=== PATIENT | female | born 1960 | race Caucasian/White ===

== ENCOUNTER 2025-02-12 07:32 | Inpatient (IN) | payer MEDICARE, BC, SELFPAY ==
[2025-02-12] VITALS (101 sets, daily range): BP systolic 81–216; BP diastolic 58–105; PULSE 51–157; RESP 13–40; TEMP 36.3–36.8; O2SAT 70–99; BMI 32.3
--- NOTE | 2025-02-12 07:34 | ECG_ITS ---
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
--- NOTE | 2025-02-12 07:38 | XR_ITS ---
WS: [id number] Portable AP upright chest, 02/12/2025 Clinical Data: chest pain Comparison: None. Findings: There are patchy bilateral lower lobe opacities which may represent acute pneumonia. The heart is normal. The pulmonary vascularity is not increased and there is no pneumothorax. There are no nodules or masses. The aortic arch and descending thoracic aorta show minimal tortuosity. There are monitor leads on the chest wall. XR/XR chest 1V portable [id number] Impression: 1. Bilateral lower lobe patchy opacities which may represent acute pneumonia. 2. Atherosclerosis.
--- OUTSIDE RECORDS SUMMARY | 2025-02-12 07:40 | XMS_ITS | Continuity of Care Document ---
Author Organization CORRINE - Ihsan Fiore [facility] [place], [place], [facility] ([facility]) Address [address] [facility] [place] [address] Assessment No assessment recorded. Plan of Treatment Reminders Order Date Submit Date Provider Last Modified By Organization Details Last Modified Time Details Appointments None recorded. Lab culture, urine 2024 [employer] [facility], [address] [place] [address], [facility] [address] [place], [address], 5 10:48:18 urinalysis, dipstick 2024 025 [facility] ([facility]), [address] [place], [address], 16:26:15 Referral None recorded. Procedures None recorded. Surgeries None recorded. Imaging None recorded. Medication Orders nitrofurant oin monohydrate /macrocryst als 100 mg capsule 2024 025 [facility], [address] [place], [address], 05:02:04 Patient TargetsNo targets recorded. Patient InstructionsNo instructions recorded. Reason for Referral None Reported. Results Created Date Observation Date Name Description Value Unit Range Abnormal Flag Note LastModifiedBy Organization Detail LastModifiedTime 12/29/19 25 12/31/2024 CULTU RE, URINE , ROUTI NE culture, urine, routine SEE NOTE abnormal CULTU RE, URINE , ROUTI NE Micro Numbe r: [id number] Test Statu s: Final Speci men Sourc e: Not given Speci men Quali ty: Adequ ate Resul t: Great er than 100,0 00 CFU/m L of Esche connor a coli COMME NT: Addit ional non-p redom inati ng organ ism(s ) isola daniel. These organ isms, commo nly found on exter nal and inter nal genit bree, are consi dered colon izers . No furth er testi ng perfo rmed. E.col i ----- ----- ----- - INT JUANA AMOX/ CLAVU LANAT E R >=32 AMP/S ULBAC JJ R >=32 CEFAZ REGINALDO R 8 1 CEFEP BROCK S <=0.1 2 CEFTA ZIDIM E S <=0.5 CEFTR IAXON E S <=0.2 5 CIPRO FLOXA OFELIA S <=0.0 6 GENTA MICIN S <=1 IMIPE NEM S <=0.2 5 LEVOF LOXAC IN S <=0.1 2 MEROP ENEM S <=0.2 5 NITRO FURAN TOIN S <=16 PIP/T AZOBA CTAM S 8 TRIME THOPR IM/ROBINS LFA R >=320 S = Susce ptibl e I = Inter media te R = Resis tant NS = Not susce ptibl e SDD = Susce ptibl e Dose Depen dent * = Not Teste d NR = Not Repor daniel NN = See Thera py Comme nts THERA PY COMME NTS Note 1: For uncom plica daniel UTI cause d by E. coli, K. pneum oniae or P. mirab ilis: Cefaz reginaldo is susce ptibl e if JUANA <32 mcg/m L and predi cts susce ptibl e to the oral agent s cefac nadia, cefdi bisi, cefpo doxim e, cefpr ozil, cefur oxime , cepha lexin and lorac arbef . Not Available [employer] [facility] [address] [place], [address], 12/31/2024 10:48:18 12/29/19 25 12/28/2024 urina lysis , dipst ick Leukocytes Large Not Available [facility] ([facility]) [address] [place], [address], 12/28/2024 16:17:51 12/29/19 25 12/28/2024 urina lysis , dipst ick Nitrite positi ve Not Available [facility] ([facility]) [address] [place], [address], 12/28/2024 16:17:51 12/29/19 25 12/28/2024 urina lysis , dipst ick Urobilinogen 8 Not Available [facility] ([facility]) [address] [place], [address], 12/28/2024 16:17:51 12/29/19 25 12/28/2024 urina lysis , dipst ick Protein 300 Not Available [facility] ([facility]) [address] [place], [address], 12/28/2024 16:17:51 12/29/19 25 12/28/2024 urina lysis , dipst ick pH 5.0 Not Available [facility] ([facility]) [address] [place], [address], 12/28/2024 16:17:51 12/29/19 25 12/28/2024 urina lysis , dipst ick Blood Small Not Available [facility] ([facility]) [address] [place], [address], 12/28/2024 16:17:51 12/29/19 25 12/28/2024 urina lysis , dipst ick Specific [place] 1.010 Not Available [facility] ( [facility]) [address] [place], [address], 12/28/2024 16:17:51 11/0712/28/2024 urina lysis , dipst ick Ketone Small Not Available [facility] ([facility]) [address] [place], [address], 12/28/2024 16:17:51 12/29/1912/28/2024 urina lysis , dipst ick Bilirubin Small Not Available [facility] ([facility]) [address] [place], [address], 12/28/2024 16:17:51 12/29/1912/28/2024 urina lysis , dipst ick Glucose 250 Not Available [facility] ([facility]) [address] [place], [address], 12/28/2024 16:17:51 12/29/1912/28/2024 urina lysis , dipst ick Appearance Cloudy Not Available [facility] ([facility]) [address] [place], [address], 12/28/2024 16:17:51 12/29/1912/28/2024 urina lysis , dipst ick Color Mccurtain Not Available [facility] ([facility]) [address] [place], [address], 12/28/2024 16:17:51 Result Notes None recorded. Problems Name Problem SNOMED Code Status Onset Date Resolution Date Notes Provider Name and Address Organization Details Recorded Time Hematoma of lower leg 315134496 Active 023 Dylon Velzo MD [address] [place], [address] , [facility] 12:45:36 Problem Notes None recorded. Procedures Surgical History Date Name Laterality Status Provider Name and Address Organization Details Recorded Time [facility] 08:07:01 bone graft completed Audra Kim [facility] 01/27/2024 08:07:13 Imaging Results None recorded. Procedure Notes None recorded. Medical Equipment None Reported. Allergies Allergen ID Allergen Name Allergen Category Reaction Reaction Severity Criticality Documentation Date Start Date Code Code System Note Provider Name and Address Organization Details Recorded Time 2111 Product containin g penicilli n (product) medicatio n Not available Not available Not available 06/15/2022 15737 8001 SNOMED MARTHA IESHA [facility] 3 12:29:10 67659 penicilli n V potassium medicatio n Not available Not available Not available 09/18/202226237 5 RxNorm Comme nt: Recor ded 08/05 7:26A M by Sen Andrade, Offic e Visit ; Promo daniel; Signi fican ce: *; Reaso n: Drug aller gy; ; [facility] 5 18:37:48 05808 cephalexi n monohydra te medicatio n Not available Not available Not available 09/18/2022 96971 8 RxNorm Comme nt: Recor ded 08/05 7:27A M by Sen Andrade, Offic e Visit ; Promo daniel; Signi fican ce: *; Reaso n: Drug aller gy; ; Not Available [facility] 02:29:02 63771 esomepraz ole Not available Not available Not available Not available 02/08/2025 43937 2 RxNorm Not Available surya - External Data Service - prod 5 14:38:08 Medications Name Sig Start Date Stop Date Status Note LastModified by Organization Details LastModified Time clindamycin HCl 300 mg capsule Take 1 capsule 3 times a day by oral route for 7 days. 12/28 completed Not Available Not Available Not Available azithromyci n 250 mg tablet tabs on day 1, 1 tab on days 2-5 06/05 completed Not Available Not Available Not Available Lidocaine Viscous 2 % mucosal solution Take 15 mL every 3 hours by oral route. 06/05 completed Not Available Not Available Not Available betamethaso ne acetate and sodium phos 6 mg/mL suspension for injection Take 6 mg by injection route. 2024 active Not Available Not Available Not Avai lable nitrofurant oin monohydrate /macrocryst als 100 mg capsule Take 1 capsule every 12 hours by oral route for 5 days. 01/09 completed Not Available Not Available Not Available Vitals Date Recorded Body height Body mass index (BMI) Body weight Body temperature Heart rate Oxygen saturation Systolic And Diastolic Provider Name and Address Organization Details Last Updated DateTime 5 162.56 cm 31.8 kg/m2 19551.9 9 g 97.5 [degF] 77 /min 97 % 132/70 mm[Hg] Rhea Richardson [facility] 5 16:26:06 Social History Question Answer Notes LastModified by [employer] ion Details LastModified Time Tobacco Smoking Status Never Smoker Audra grullon, [facility] 01/27/2024 08:03:02 What Was The Date Of Your Most Recent Tobacco Screening? 02/08/2025 [email or web address] Information not available 02/08/2025 Sex: Unknown Functional Status None recorded. Mental Status None recorded. Family History Nothing Reported. Medical History No medical history recorded. Gynecological HistoryNo gynecological history recorded. Obstetrics History GPAL:G 0 P 0 0 0 0 Immunizations Vaccine Type Date Status Note Provider Nam e and Address Organization Details Recorded Time Influenza, split virus, trivalent, preservative 1 completed Not Available [facility] 12/28/2024 16:13:55 Influenza, split virus, trivalent, preservative 2 completed Not Available [facility] 12/28/2024 16:13:55 Influenza, split virus, trivalent, preservative 3 completed Not Available [facility] 12/28/2024 16:13:55 Influenza, split virus, trivalent, PF 4 completed Not Available [facility] 12/28/2024 16:13:55 Influenza, high-dose, trivalent, PF completed Not Available [facility] 12/28/2024 16:13:55 Past Encounters Encounter ID Performer Location Encounter Start Date Encounter Closed Date Diagnosis/Indication Diagnosis SNOMED-CT Code Diagnosis ICD10 Code Diagnosis IMO Codes Diagnosis Note [id number] MICHAEL CHO [facility] ([facility]) [address] [place] [address] 12/28/2024 16:10:51 12/28/2024 17:04:56 Dysuria 09988557 R30.0 81160 Discussed to take antibiotic as prescribed until completedU rine culture ordered - will notify of any resultsEdu cated patient on increasing PO fluids of water, decreasing caffeine (coffee) and sugary drinks.Dis cussed importance of avoiding baths, scented soaps, douching, perfumes.M ay take OTC AZO for 1-2 days as box directs for burning sensation. Discussed if developmen t of abdominal pain, flank pain, fever, vomiting, worsening symptoms return to walk-in, PCP or ED for re-evaluat ion. Return to clinic if any changes, any worsening, any concernsPa tient verbalized understand ing of plan. Health Concerns Section Related Observation LastModified by Organization Detai ls LastModified Time None Recorded Concern Status LastModified by Organization Details LastModified Time None Recorded Payers Encounter Date Sequence Insurance Name Policy Number Policy Zapien Covered Member ID Zapien Member ID Guarantor Name 12/28/2024 1 [place] Kostas Calvert [id number] Kostas giron 12/28/2024 2 [place] [id number] Kostas graham [id number] Kostas giron Notes Date Note Type Note Provider Name and Address Organization Details Recorded Time 12/28/2024 text/html ROS as noted in the HPI walk in ptPt is having burning, urgency, lower abdominal pressure and frequency for 4 days. Started AZO yesterday. Today prior to taking an AZO for relief she took an otc urine test which was positive for UTI. MICHAEL CHO [address] [place], [address], [facility], [place] 12/28/2024 16:36:46 OBGyn Episode No OBEpisode recorded.
--- OUTSIDE RECORDS SUMMARY | 2025-02-12 07:40 | XMS_ITS | Data Portability ---
Author Organization CORRINE Martinez [facility], [place], [facility] Address [address] [address] [place] [address] Assessment No assessment recorded. Plan of Treatment Reminders Order Date Submit Date Provider Last Modified By Organization Details Last Modified Time Details Appointments None recorded. Lab culture, urine 2024 [place] [employer] [facility], [address] [place] [address], [facility] [address] [place], [address], 5 10:48:18 urinalysis, dipstick 2024 025 [facility] ([facility]), [address] [place], [address], 5 16:26:15 rapid strep group A, throat 2023 024 [facility] ([facility]), [address] [place], [address], 4 10:42:27 Referral None recorded. Procedures None recorded. Surgeries None recorded. Imaging None recorded. Medication Orders betamethaso ne acetate and sodium phos 6 mg/mL suspension for injection 2024 025 [email or web address] Not available 5 16:54:09 nitrofurant oin monohydrate /macrocryst als 100 mg capsule 2024 025 [facility] [place], [address] [place], [address], 5 05:02:04 clindamycin HCl 300 mg capsule 2024 025 [facility], [address], [place], [address], 5 17:24:52 betamethaso ne acetate and sodium phos 6 mg/mL suspension for injection 2023 024 [email or web address] Not available 18:37:59 Lidocaine Viscous 2 % mucosal solution 2023 025 [facility], [address] [place] [address], [address], 5 18:46:10 clindamycin HCl 300 mg capsule 2023 [email or web address] [place] [address], [address] [place] [address], [address], 5 16:22:49 azithromyci n 250 mg tablet 2023 025 [facility], [address] [place] [address], [address], 5 18:46:09 Patient TargetsNo targets recorded. Patient InstructionsNo instructions recorded. Reason for Referral None Reported. Results Created Date Observation Date Name Description Value Unit Range Abnormal Flag Note LastModifiedBy Organization Detail LastModifiedTime 01/24/20 24 01/24/2024 rapid strep group A, throa t Strep negati ve Not Available [facility] ([facility]) [address] [place], [address], 01/24/2024 10:30:01 12/29/19 25 12/31/2024 CULTU RE, URINE , ROUTI NE culture, urine, routine SEE NOTE abnormal CULTU RE, URINE , ROUTI NE Micro Numbe r: [id number] Test Statu s: Final Speci men [...] lexin and lorac arbef . Not Available [employer] [facility] [address] [place], [address], 12/31/2024 10:48:18 12/29/19 25 12/28/2024 urina lysis , dipst ick Leukocytes Large Not Available [facility] ([facility]) [address] [place], [address], 12/28/2024 16:17:51 12/29/19 25 12/28/2024 urina lysis , dipst ick Nitrite positi ve Not Available [facility] ([facility]) [address] [place], [address], 12/28/2024 16:17:51 12/29/19 25 12/28/2024 urina lysis , dipst ick Urobilinogen 8 Not Available [facility] ([facility]) [address] [place], [address], 12/28/2024 16:17:51 12/29/19 25 12/28/2024 urina lysis , dipst ick Protein 300 Not Available [facility] ([facility]) [address] [place], [address], 12/28/2024 16:17:51 12/29/19 25 12/28/2024 urina lysis , dipst ick pH 5.0 Not Available [facility] ([facility]) [address] [place], [address], 12/28/2024 16:17:51 12/29/19 25 12/28/2024 urina lysis , dipst ick Blood Small Not Available [facility] ([facility]) [address] [place], [address], 12/28/2024 16:17:51 12/29/19 25 12/28/2024 urina lysis , dipst ick Specific [place] 1.010 Not Available [facility] ( [facility]) [address] [place], [address], 12/28/2024 16:17:51 12/29/19 25 12/28/2024 urina lysis , dipst ick Ketone Small Not Available [facility] ([facility]) [address] [place], [address], 12/28/2024 16:17:51 12/29/1912/28/2024 urina lysis , dipst ick Bilirubin Small Not Available [facility] ([facility]) [address] [place], [address], 12/28/2024 16:17:51 12/29/1912/28/2024 urina lysis , dipst ick Glucose 250 Not Available [facility] ([facility]) [address] [place], [address], 12/28/2024 16:17:51 12/29/1912/28/2024 urina lysis , dipst ick Appearance Cloudy Not Available [facility] ( [facility]) [address] [place], [address], 12/28/2024 16:17:51 12/29/1912/28/2024 urina lysis , dipst ick Color [place] Not Available [facility] ([facility]) [address] [place], [address], 12/28/2024 16:17:51 Result Notes None recorded. Problems Name Problem SNOMED Code Status Onset Date Resolution Date Notes Provider Name and Address Organization Details Recorded Time Hematoma of lower leg 146166302 Active 023 Dylon Veloz MD [address] [place], [address] , [facility] 12:45:36 Problem Notes None recorded. Procedures Surgical History Date Name Laterality Status Provider Name and Address Organization Details Recorded Time Total [facility] 01/27/2024 08:07:01 bone graft completed Audra Kim [facility] 01/27/2024 08:07:13 Imaging Results None recorded. Procedure Notes None recorded. Medical Equipment None Reported. Allergies Allergen ID Allergen Name Allergen Category Reaction Reaction Severity Criticality Documentation Date Start Date Code Code System Note Provider Name and Address Organization Details Recorded Time 2111 Product containin g penicilli n (product) medicatio n Not available Not available Not available 06/15/2022 94205 8001 SNOMED MARTHA [facility] 3 12:29:10 40791 penicilli n V potassium medicatio n Not available Not available Not available 09/18/202213327 5 RxNorm Comme nt: Recor ded 08/05 7:26A M by Sen Andrade, Offic e Visit ; Promo daniel; Signi fican ce: *; Reaso n: Drug aller gy; ; Sunita Tim[facility]o [facility] 5 18:37:48 81172 cephalexi n monohydra te medicatio n Not available Not available Not available 09/18/2022 32149 8 RxNorm Comme nt: Recor ded 08/05 7:27A M by Sen Andrade, Offic e Visit ; Promo daniel; Signi fican ce: *; Reaso n: Drug aller gy; ; Not Available [facility] 3 02:29:02 09869 esomepraz ole Not available Not available Not available Not available 02/08/2025 93882 2 RxNorm Not Available surya - External [...] height Body mass index (BMI) Body weight Oxygen saturation Heart rate Body temperature Systolic And Diastolic Provider Name and Address Organization Details Last Updated DateTime 5 162.56 cm 32.1 kg/m2 91390.1 7 g 97 % 74 /min 97.8 [degF] 124/78 mm[Hg] Sunita Mahmood [facility] 5 18:42:29 Date Recorded Body height Body mass index (BMI) Body weight Body temperature Heart rate Oxygen saturation Systolic And Diastolic Provider Name and Address Organization Details Last Updated DateTime 5 162.56 cm 31.8 kg/m2 26939.9 9 g 97.5 [degF] 77 /min 97 % 132/70 mm[Hg] Rhea Richardson [facility] 5 16:26:06 Date Recorded Body height Body mass index (BMI) Body weight Oxygen saturation Heart rate Body temperature Systolic And Diastolic Provider Name and Address Organization Details Last Updated DateTime 4 162.56 cm 31.4 kg/m2 85252.4 g 99 % 70 /min 97.8 [degF] 128/72 mm[Hg] Jerome Randall [facility] 4 10:23:09 Date Recorded Body height Body mass index (BMI) Body weight Oxygen saturation Heart rate Respiratory rate Body temperature Systolic And Diastolic Provider Name and Address Organization Details Last Updated DateTime 4 162.56 cm 31.2 kg/m2 88906.8 1 g 95 % 95 /min 16 /min 98.2 [degF] 160/90 mm[Hg] Audra Kim [facility] 4 08:08:20 Date Recorded Body height Body mass index (BMI) Body weight Body temperature Oxygen saturation Heart rate Systolic And Diastolic Provider Name and Address Organization Details Last Updated DateTime 5 162.56 cm 31.9 kg/m2 99444.8 8 g 98.4 [degF] 98 % 100 /min 132/74 mm[Hg] Rhea Dylan [facility] 5 14:54:26 Social History Question Answer Notes LastModified by Organizat ion Details LastModified Time Tobacco Smoking Status Never Smoker Audra Kim yadi [facility] 01/27/2024 08:03:02 What Was The Date Of Your Most Recent Tobacco Screening? 02/08/2025 [email or web address] Information not available 02/08/2025 Sex: Unknown Functional Status None recorded. Mental Status None recorded. Family History Nothing Reported. Medical History No medical history recorded. Gynecological HistoryNo gynecological history recorded. Obstetrics History GPAL:G 0 P 0 0 0 0 Immunizations Vaccine Type Date Status Note Provider Nam e and Address Organization Details Recorded Time Influenza, split virus, trivalent, preservative 1 completed Not Available [facility] 12/28/2024 16:13:55 Influenza, split virus, trivalent, preservative 2 completed Not Available [facility] 12/28/2024 16:13:55 Influenza, split virus, trivalent, preservative 3 completed Not Available [facility] 12/28/2024 16:13:55 Influenza, split virus, trivalent, PF 4 completed Not Available [facility] 12/28/2024 16:13:55 Influenza, high-dose, trivalent, PF 5 completed Not Available [facility] 12/28/2024 16:13:55 Past Encounters Encounter ID Performer Location Encounter Start Date Encounter Closed Date Diagnosis/Indication Diagnosis SNOMED-CT Code Diagnosis ICD10 Code Diagnosis IMO Codes Diagnosis Note [id number] Dylon Veloz MD [facility] ([facility]) [address] [place] [address] 06/15/2022 12:23:01 06/15/2022 19:19:46 Hematoma of lower leg 398101636 S80.11XA continue with current interventi ons at this time...f/u if it does not improve.. [id number] [facility] [address] [place] [address] 01/24/2024 10:11:01 01/24/2024 13:09:38 Sore throat 428654805 J02.9 Acute tonsillitis 598234 08 J03.90 Push cold oral fluids including Popsicles. Alternate tylenol/mo david for fever or discomfort .May use throat lozenges, chlorasept ic spray, or saltwater gargles.ta ke antibiotic as directedIf you develop worsening symptoms such as unable to swallow, persistant fever, or concerns arise then return for re-eval. [id number] TREVER OSMAN [facility] ([facility]) [address] [place] [address] 01/27/2024 08:01:52 01/31/2024 13:43:51 Acute pharyngitis 326240112 J02.9 Discussed use of prescribed meds. Stop the zpack. Use the visc lidocaine PRN to help with eating/dri nking fluids. F/u if you develop increased swelling, symptoms worsen, cannot swallow own secretions . [id number] MICHAEL CHO [facility] ([facility]) [address] [place] [phone] 06/05/2024 18:32:49 06/05/2024 22:29:20 Acute pharyngitis 221952570 J02.9 Drink plenty of fluids. If you develop throat swelling, difficulty swallowing , symptoms are worsening or rash return to clinic for further evaluation or PCP. Utilize OTC Tylenol or Ibuprofen for fever/pain /discomfor t. Patient verbalized understand ing of plan.Retur n to clinic if any changes, any worsening, any concerns. [id number] MICHAEL CHO [facility] ([facility]) [address] [place] [address] 12/28/2024 16:10:51 12/28/2024 17:04:56 Dysuria 84061618 R30.0 60784 Discussed to take antibiotic as prescribed until [...] concernsPa tient verbalized understand ing of plan. [id number] MICHAEL SUMMERS [facility] ([facility]) [address] [place] [address] 02/08/2025 14:37:10 02/08/2025 17:01:10 Pain in throat 060548259 J02.9 16195 Health Concerns Section Related Observation LastModified by Organization Detai ls LastModified Time None Recorded Concern Status LastModified by Organization Details LastModified Time None Recorded Advance Directives Directive None Recorded Payers Insurance Date Sequence Insurance Name Policy Number Policy Zapien Covered Member ID Zapien Member ID Guarantor Name 02/08/2025 [place] - [facility] (MEDICARE) Kostas wilcox [id number] Kostas Glynn es 02/08/2025 2 [employer] [id number] (MEDICARE SUPPLEMENT) Kostas wilcox [id number] Kostas Glynn es 02/08/2025 1 [place] Kostas Calvert [id number] Kostas Glynn es 02/08/2025 1 [facility] [id number] Kostas wilcox [id number] Kostas Glynn es 02/08/2025 2 [place]) [id number] Kostas wilcox [id number] Kostas lock Notes Date Note Type Note Provider Name and Address Organization Details Recorded Time 01/24/2024 text/html ROS as noted in the HPI walk in: Pt presents with a sore throat, right ear pressure for the last several days. 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 Pt will rub this area to promote drainage and her symptoms typically resolve. it's not working this time. PCP: none MICHAEL SUMMERS [address] [place] [address], [phone], [facility] 01/24/2024 14:47:10 01/27/2024 text/html Sore ThroatRepor daniel by PatientROS as noted in the HPI walk in patientpatient is here today for a follow up on her sore throat from 01/24/24, patient is taking the z pac and it has not helped her sore throat. Has 2 doses left. States she feels more swelling in her throat. Hurts to swallow fluid or food. Denies fever, rash, joint pain. MICHAEL SUMMERS [address] [place] [address], [phone], [facility] 01/28/2024 10:43:58 06/05/2024 text/html ROS as noted in the HPI walk inx 1 day has swelling, draining to bronchial cleft defect. Last issue was in January. Has had increasing pain throughout the day. Denies any problems with swallowing. 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 Pt will rub this area to promote drainage and her symptoms typically resolve. It's not working this time. Area is red from the rubbing. 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 06/05/2024 18:57:50 12/28/2024 text/html ROS as noted in the HPI walk in ptPt is having burning, urgency, lower abdominal pressure and frequency for 4 days. Started AZO yesterday. Today prior to taking an AZO for relief she took an otc urine test which was positive for UTI. BLANCA STEVEN, [facility] [address] [place], [address], [facility]. 12/28/2024 16:36:46 02/08/2025 text/html ROS as noted in the HPI walk in ptPt felt like she had a fever in her neck because it was sweating. PT has a defect in her neck and she thinks it is causing shortness of breath this week. TREVER OSMAN, [facility] [address] [place], [address], [facility], [facility]. 02/08/2025 16:03:13 OBGyn Episode No OBEpisode recorded.
--- OUTSIDE RECORDS SUMMARY | 2025-02-12 07:40 | XMS_ITS | Clinical Summary ---
Author Organization [employer] Address [address] 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
--- OUTSIDE RECORDS SUMMARY | 2025-02-12 07:40 | XMS_ITS | Continuity of Care Document ---
Author Organization [facility] Rickey Augustine, [facility] ([facility]) Address [address] [facility] [place] [address] Assessment No assessment recorded. Plan of Treatment Reminders Order Date Submit Date Provider Last Modified By Organization Details Last Modified Time Details Appointments None recorded. Lab None recorded. Referral None recorded. Procedures None recorded. Surgeries None recorded. Imaging None recorded. Medication Orders betamethaso ne acetate and sodium phos 6 mg/mL suspension for injection 2024 025 [email or web address] Not available 5 16:54:09 Patient TargetsNo targets recorded. Patient InstructionsNo instructions recorded. Reason for Referral None Reported. Problems Name Problem SNOMED Code Status Onset Date Resolution Date Notes Provider Name and Address Organization Details Recorded Time Hematoma of lower leg 500069495 Active 023 Dylon Veloz MD [address] [place] [address], [address] , [facility] 3 12:45:36 Problem Notes None recorded. Procedures Surgical History Date Name Laterality Status Provider Name and Address Organization Details Recorded Time Total Hysterectomy completed [facility] 01/27/2024 08:07:01 bone graft completed [facility] 01/27/2024 08:07:13 Imaging Results None recorded. Procedure Notes None recorded. Medical Equipment None Reported. Allergies Allergen ID Allergen Name Allergen Category Reaction Reaction Severity Criticality Documentation Date Start Date Code Code System Note Provider Name and Address Organization Details Recorded Time 2111 Product containin g penicilli n (product) medicatio n Not available Not available Not available 06/15/2022 76133 8001 SNOMED MARTHA IESHA [facility] 3 12:29:10 42548 penicilli n V potassium medicatio n Not available Not available Not available 09/18/202291873 5 RxNorm Comme nt: Recor ded 08/05 7:26A M by Sen Andrade, Offic e Visit ; Promo daniel; Signi fican ce: *; Reaso n: Drug aller gy; ; [facility] 5 18:37:48 44249 cephalexi n monohydra te medicatio n Not available Not available Not available 09/18/2022 20443 8 RxNorm Comme nt: Recor ded 08/05 7:27A M by Sen Andrade, Offic e Visit ; Promo daniel; Signi fican ce: *; Reaso n: Drug aller gy; ; Not Available [facility] 3 02:29:02 53957 esomepraz ole Not available Not available Not available Not available 02/08/2025 26484 2 RxNorm Not Available surya - External [...] Updated DateTime 5 162.56 cm 31.9 kg/m2 32619.8 8 g 98.4 [degF] 98 % 100 /min 132/74 mm[Hg] Rhea Richardson [facility] 5 14:54:26 Social History Question Answer Notes LastModified by Organizat ion Details LastModified Time Tobacco Smoking Status Never Smoker Audra grullon [facility] 01/27/2024 08:03:02 What Was The Date Of Your Most Recent Tobacco Screening? 02/08/2025 [email or web address] Information not available 02/08/2025 Sex: Unknown Functional [...] preservative 1 completed Not Available [facility] 12/28/2024 16:13:55 Influenza, split virus, trivalent, preservative 2 completed Not Available [facility] 12/28/2024 16:13:55 Influenza, split virus, trivalent, preservative 3 completed Not Available [facility] 12/28/2024 16:13:55 Influenza, split virus, trivalent, PF 4 completed Not Available [facility] 12/28/2024 16:13:55 Influenza, high-dose, trivalent, PF 5 completed Not Available [facility] 12/28/2024 16:13:55 Past Encounters Encounter ID Performer Location Encounter Start Date Encounter Closed Date Diagnosis/Indication Diagnosis SNOMED-CT Code Diagnosis ICD10 Code Diagnosis IMO Codes Diagnosis Note [id number] MICHAEL SUMMERS [facility] ([facility]) [address] [place] [address] 02/08/2025 14:37:10 02/08/2025 17:01:10 Pain in throat 235140450 J02.9 35256 Health Concerns Section Related Observation LastModified by Organization Detai ls LastModified Time None Recorded Concern Status LastModified by Organization Details LastModified Time None Recorded Payers Encounter Date Sequence Insurance Name Policy Number Policy Zapien Covered Member ID Zapien Member ID Guarantor Name 02/08/2025 1 [place] Kostas Calvert [id number] Kostas giron 02/08/2025 2 [place]MED[place]) [id number] Kostas graham [id number] Kostas giron Notes Date Note Type Note Provider Name and Address Organization Details Recorded Time 02/08/2025 text/html ROS as noted in the HPI walk in ptPt felt like she had a fever in her neck because it was sweating. PT has a defect in her neck and she thinks it is causing shortness of breath this week. TREVER OSMAN, MICHAEL [address] [place], [address], CORRINE Champagne [facility], Rickey 02/08/2025 16:03:13 OBGyn Episode No OBEpisode recorded.
--- OUTSIDE RECORDS SUMMARY | 2025-02-12 07:40 | XMS_ITS | Patient Health Record ---
Author Organization [facility] Address [address] [place] [address] Support Name Relationship Address Phone Kostas Calvert Guarantor Unknown [phone] Allergies Allergen (clinical drug ingredient) Drug/Non Drug Allergy documented on EMR Reaction Allergy Type Onset Date Status esomeprazole Esomeprazole , Drug Allergy A ctive Reason For Referral No Information Medications Medication SIG (Take, Route, Frequency, Duration) Notes Start Date End Date Status Ibuprofen 200 MG Oral Tablet Ibuprofen 200 MG Oral Tablet 05/10/2011 Active Tylenol Tylenol 05/06/2011 Active Tagamet Tagamet 05/06/2011 Active Social History Social History Additional Details Category Social Info Options Details zzMigrated Social History Migrated Social History Smoking Status:Never smoked tobacco (finding) Plan Of Treatment No Information
--- OUTSIDE RECORDS SUMMARY | 2025-02-12 07:41 | XMS_ITS | Encounter Summary ---
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
--- NOTE | 2025-02-12 07:52 | ED_ITS ---
HPI - Chest Pain 2 General: Chief Complaint: Chest Pain Stated Complaint: high hr, cp Time Seen by Provider: 02/12/25 07:42 History of Present Illness: 64-year-old female with no known past me dical history presents emergency room with chest discomfort and a high heart rate. She says she has been dealing with this for about a month but but is worse today. On presentation she is tachycardic in the 150s. She says she has a pressure in her chest. She takes no medications. No cough. No fever. No altered mental status. No focal motor deficits. When I discussed that we may have to keep her in the hospital she comes very tearful. Apparently her father recently. She says she has to deal with arrangements Related Data Home Medications ?Medication ?Instructions ?Recorded ?Confirmed No Known Home Medications 06/07/2401/22 Allergies Allergy/AdvReac Type Severity Reaction Status Date / Time cephalexin Allergy Ammon Verified 02/12/25 09:57 Lip/Tongue/Throat Penicillins Allergy Ammon Verified 02/12/25 09:57 Lip/Tongue/Throat Review of Systems 2 Narrative: Constitutional symptoms: Negative except as documented in HPI. Skin symptoms: Negative except as documented in HPI. Eye symptoms: Negative except as documented in HPI. ENMT symptoms: Negative except as documented in HPI. Respiratory symptoms: Negative except as documented in HPI. Cardiovascular symptoms: Negative except as documented in HPI. Gastrointestinal symptoms: Negative except as documented in HPI. Genitourinary symptoms: Negative except as documented in HPI. Musculoskeletal symptoms: Negative except as documented in HPI. Neurologic symptoms: Negative except as documented in HPI. Psychiatric symptoms: Negative except as documented in HPI. Endocrine symptoms: Negative except as documented in HPI. PFSH ED 2 PFSH: Social History Smoking and tobacco/nicotine status: never used tobacco/nicotine Physical Exam 2 Narrative: EXAM NARRATIVE: General: Alert, no acute distress. Skin: Warm, dry. Head: Normocephalic, atraumatic. Neck: Supple, trachea midline. Eye: Extraocular movements are intact. Ears, nose, mouth and throat: mucosa moist. Cardiovascular: Irregular, tachycardic, Normal peripheral perfusion. Respiratory: Lungs are clear to auscultation, respirations are non-labored, breath sounds are equal, Symmetrical chest wall expansion. Gastrointestinal: Soft, Nontender, Non distended Musculoskeletal: Normal ROM, no deformity. Neurological: Alert and oriented, No focal neurological deficit observed. Psychiatric: Cooperative, appropriate mood & affect. Course 2 Vital Signs: Vital signs: Vital Signs Temperature 97.4 F L 02/12/25 07:36 Pulse Rate 116 H 02/12/25 09:30 Respiratory Rate 20 H 02/12/25 09:30 Blood Pressure 119/78 02/12/25 09:30 Pulse Oximetry 86 L 02/12/25 09:30 Oxygen Delivery Me thod Room Air 02/12/25 07:53 MDM - Chest Pain Medical Decision Making Medical decision making Patient's reason for coming to the emergency room: Chest pressure, tachycardia Social determinants: Retired. is present. I reviewed the patient's medical record. She has had 1 visit to urgent care in May. No other visits here. I reviewed the patient's current home meds Patient takes no chronic medications Alternate historians: None Differential diagnosis: including but not limited to and based on the above HPI, review of systems and physical exam: In this patient with new onset atrial fibrillation with rapid ventricular response would have concern for heart failure, acute coronary syndrome, electrolyte abnormalities, hyperthyroidism, infection such as a urinary tract infection. orders placed to evaluate differential diagnosis based on the above differential, HPI and physical exam EKG: Time 7:39 AM. Rate 147. Atrial fibrillation with rapid ventricular response, nonspecific ST changes, no ectopy, This was reviewed and interpreted by myself the ER physician at 7:45 AM. Repeat EKG: Time 9:40 AM. Rate 108. Atrial fibrillation with rapid ventricular response, nonspecific ST change, no ectopy, This was reviewed and interpreted by myself the ER physician at 9:45 AM. Heart rate has decreased significantly from previous EKG. No other changes. Chest x-ray: Bilateral lower lobe patchy opacities which may represent pneumonia. However I think this is more of a basilar heart failure picture. She does not have a cough or fever. She has been having orthopnea. This was reviewed and interpreted by myself the emergency room physician. I also reviewed the radiology report. Lab Review: Laboratory results were reviewed and interpreted by myself the emergency room physician. Mild leukocytosis. No anemia. No renal failure. Serial cardiac markers are negative and unchanged at 1 hour Assessment of risk: Level of risk: Moderate risk patient. Hospitalization considerations: Patient is being admitted for A-fib with RVR, heart failure and urinary tract infection Reexamination: Patient heart rate has come down some. She is not requiring any oxygen. No altered mental status. No focal motor deficits. Consultation: I spoke with Dr. Sloan who agrees to admission of the patient. Request cardiology consult. And stat echo Consultation: I spoke with Dr. Gonzáles who is on-call for cardiology who will consult on the patient. He agrees with echocardiogram Assessment and plan: Atrial fibrillation with rapid ventricular response. New onset atrial fibrillation Congestive heart failure Urinary tract infection ? Amiodarone bolus and drip. Heart rate is coming down slowly. ? IV Rocephin for urinary tract infection. -I discussed the patient with the hospitalist on-call who is admitting the patient. - Discussed findings and plan with patient. Answered any questions. - All laboratory values were reviewed and interpreted personally by myself, the ER physician - All imaging was reviewed and interpreted personally by myself, the ER physician. - Evaluation and treatment of this problem were appropriate in the emergency setting Critical Care: -I spent a total of 37 minutes of critical care time managing the patient, independent of any other practitioner. -The time involved in the performance of separately reportable procedures was not counted towards critical care time. Lab Data 02/12/25 07:49 02/12/25 07:49 Radiology Impressions Chest X-Ray 02/12/25 07:38 Impression: 1. Bilateral lower lobe patchy opacities which may represent acute pneumonia. 2. Atherosclerosis. Laboratory Results WBC 15.89 10^3/uL (3.29-11.43) H 02/12/25 07:49 RBC 4.31 10^6/uL (3.85-5.65) 02/12/25 07:49 Hgb 13.20 g/dL (11.27-16.99) 02/12/25 07:49 Hct 40.4 % (36-47) 02/12/25 07:49 MCV 93.7 fl (85-98) 02/12/25 07:49 MCH 30.6 pg (27-33) 02/12/25 07:49 MCHC 32.7 g/dL (30-55) 02/12/25 07:49 RDW 12.8 % (12.1-15.1) 02/12/25 07:49 Plt Count 278 10^3/cmm (157-399) 02/12/25 07:49 MPV 12.9 fL (7.4-10.4) H 02/12/25 07:49 Neut % (Auto) 55.5 % 02/12/25 07:49 Lymph % (Auto) 33.0 % 02/12/25 07:49 [place] % (Auto) 8.3 % 02/12/25 07:49 Eos % (Auto) 1.5 % 02/12/25 07:49 Baso % (Auto) 0.6 % 02/12/25 07:49 Neut # (Auto) 8.82 10^3/uL (1.8-7.7) H 02/12/25 07:49 Lymph # (Auto) 5.2 10^3/uL (0.8-4.8) H 02/12/25 07:49 [place] # (Auto) 1.3 10^3/uL (0.2-0.9) H 02/12/25 07:49 Eos # (Auto) 0.2 10^3/uL (0.0-0.8) 02/12/25 07:49 Baso # (Auto) 0.1 10^3/uL (0.0-0.1) 02/12/25 07:49 Nucleated RBC % (auto) 0.1 % 02/12/25 07:49 Nucleated RBCs # 0.0 /100WBC 02/12/25 07:49 PT 12.70 SECONDS (12.1-14.9) 02/12/25 07:49 INR 0.89 (0.8-1.2) 02/12/25 07:49 APTT 26.4 SECONDS (23.9-36.7) 02/12/25 07:49 Sodium 137 mmol/L (136-145) 02/12/25 07:49 Potassium 4.1 mmol/L (3.5-5.1) 02/12/25 07:49 Chloride 104 mmol/L (98-107) 02/12/25 07:49 Carbon Dioxide 20 mmol/L (22-29) L 02/12/25 07:49 Anion Gap 17.1 (5-19) 02/12/25 07:49 BUN 16 mg/dL (8-23) 02/12/25 07:49 Creatinine 0.6 mg/dL (0.5-0.9) 02/12/25 07:49 GFR Calculation 100.0 mL/min (90-130) 02/12/25 07:49 Glucose 128 mg/dL (65-115) H 02/12/25 07:49 Calculated Osmolality 287 mOsm/kg (285-295) 02/12/25 07:49 Lactic Acid 1.7 mmol/L (0.5-2.2) 02/12/25 07:49 Calcium 9.3 mg/dL (8.5-10.5) 02/12/25 07:49 Magnesium 2.0 mg/dL (1.7-2.3) 02/12/25 07:49 Total Bilirubin 0.4 mg/dL (0.15-1.2) 02/12/25 07:49 AST 24 U/L (0-32) 02/12/25 07:49 ALT 44 U/L (0-33) H 02/12/25 07:49 Alkaline Phosphatase 98 U/L (35-105) 02/12/25 07:49 Troponin T Baseline 13 ng/L (0-10) H 02/12/25 07:49 Troponin T 60 Minute 10.38 ng/L (0-10) H 02/12/25 08:30 Delta Troponin T -2.62 ABS# (0-10) L 02/12/25 08:30 NT-Pro-B Natriuret Pep 3470 pg/mL (0-125) H 02/12/25 07:49 Total Protein 6.6 g/dL (6.6-8.7) 02/12/25 07:49 Albumin 4.3 g/dL (3.5-5.2) 02/12/25 07:49 Globulin 2.3 g/dL (1.3-4.6) 02/12/25 07:49 Lipase 37 U/L (13-60) 02/12/25 07:49 TSH 2.57 uIU/mL (0.27-4.20) 02/12/25 07:49 Urine Color Yellow (Yellow) 02/12/25 08:09 Urine Appearance Cloudy (CLEAR) A 02/12/25 08:09 Urine pH 5.0 (5-7) 02/12/25 08:09 Ur Specific [place] 1.025 (1.005-1.030) 02/12/25 08:09 Urine Protein 1+ (Negative) A 02/12/25 08:09 Urine Glucose (UA) Negative (Normal) 02/12/25 08:09 Urine Ketones Trace (Negative) 02/12/25 08:09 Urine Blood Negative (Negative) 02/12/25 08:09 Urine Nitrate Negative (Negative) 02/12/25 08:09 Urine Bilirubin Negative (Negative) 02/12/25 08:09 Urine Urobilinogen 0.2 mg/dL (Negative) 02/12/25 08:09 Ur Leukocyte Esterase 2+ (Negative) A 02/12/25 08:09 Urine RBC 3-5 /hpf (0-2) 02/12/25 08:09 Urine WBC 51-100 /hpf (0-5) H 02/12/25 08:09 Ur Squamous Epith Cells 11-20 /hpf (0-5) H 02/12/25 08:09 Amorphous Sediment Not Reportable 02/12/25 08:09 Urine Bacteria None seen /hpf (NONE) 02/12/25 08:09 Hyaline Casts 4.95 /lpf 02/12/25 08:09 All radiology interpretation(s) finalized by discharge Clincial Decision Support The following clinical decision support tools were used to aid in care of the patient HEART Score -> History: Moderately Suspicious, EKG: Non-specific Changes, Age: 65 or more yrs, Risk Factors: No Risk Factors Known, Troponin: Baseline Trop <16 ng/L. Resulting HEART Score: 4. Discharge Plan Discharge Patient Disposition: Admitted As Inpatient Admit Provider: Rito Sloan Clinical Impression: New onset atrial fibrillation, Atrial fibrillation with rapid ventricular response, New onset of congestive heart failure, Urinary tract infection Condition: Stable Coding Level of Care Code ED Branch Or Department Chief Librarian for [facility] Heart Score HEART Score Components History: Moderately Suspicious EKG: Non-specific Changes Age: 65 or more yrs Risk Factors: No Risk Factors Known Troponin: Baseline Trop <16 ng/L HEART Score RESULT HEART Score: 4
[2025-02-12 07:57] LABS: Hematocrit 40.4 % (36-47); Hemoglobin 13.20 g/dL (11.27-16.99); Mean Corpuscular HGB Conc 32.7 g/dL (30-55); Mean Corpuscular Hemoglobin 30.6 pg (27-33); Mean Corpuscular Volume 93.7 fl (85-98); Nucleated Red Blood Cells % 0.1 %; Platelet Count 278 10^3/cmm (157-399); Red Blood Count 4.31 10^6/uL (3.85-5.65); White Blood Count 15.89 10^3/uL (3.29-11.43)
[2025-02-12 08:12] LABS: Lactic Sepsis W/Reflex 1.7 mmol/L (0.5-2.2)
[2025-02-12 08:13] LABS: Slide Review Slide Review Perform; Troponin(5th) Baseline 13 ng/L (0-10)
[2025-02-12 08:24] LABS: Alanine Aminotransferase 44 U/L (0-33); Albumin Level 4.3 g/dL (3.5-5.2); Alkaline Phosphatase 98 U/L (35-105); Anion Gap 17.1 (5-19); Aspartate Amino Transferase 24 U/L (0-32); Blood Urea Nitrogen 16 mg/dL (8-23); Calcium 9.3 mg/dL (8.5-10.5); Carbon Dioxide 20 mmol/L (22-29); Chloride 104 mmol/L (98-107); Globulin 2.3 g/dL (1.3-4.6); Glucose 128 mg/dL (65-115); Lipase 37 U/L (13-60); Magnesium 2.0 mg/dL (1.7-2.3); NT Pro B Type Natriuretic Pept 3470 pg/mL (0-125); Osmolality Calculated 287 mOsm/kg (285-295); Potassium 4.1 mmol/L (3.5-5.1); Sodium 137 mmol/L (136-145); Thyroid Stimulating Hormone 2.57 uIU/mL (0.27-4.20); Total Protein 6.6 g/dL (6.6-8.7)
[2025-02-12 08:32] LABS: INR 0.89 (0.8-1.2); Prothrombin Time 12.70 SECONDS (12.1-14.9)
[2025-02-12 08:32] LABS: Glucose Urine UA Negative (Normal); Nitrate Urine Negative (Negative); Specific Gravity, Urine 1.025 (1.005-1.030)
[2025-02-12 08:34] LABS: Partial Thromboplastin Time 26.4 SECONDS (23.9-36.7)
--- NOTE | 2025-02-12 08:38 | ECG_ITS ---
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
[2025-02-12] MEDS: dilTIAZem 5 mg/mL SDV 5 mL 10 MG IVP (08:59)
[2025-02-12] MEDS: DILTIAZEM HCL/D5W 125 MG/125 ML BAG IV (08:59)
--- NOTE | 2025-02-12 09:11 | USCV_ITS ---
Kostas Magallon Age: 64 Gender: F : 1960 Exam Date: 02/12/2025 16:29 Ordering Phys: Joleen Lopez MD Technologist: SILAS Exam Location: [facility] Indication: new onset CHF and afib BP: 120 / 72 HR: 86 Rhythm: Sinus Technical Quality: Adequate MEASUREMENTS (Male / Female) Normal Values 2D ECHO LV Diastolic Diameter PLAX 5.1 cm 4.2 - 5.9 / 3.9 - 5.3 cm IVS Diastolic Thickness 1.1 cm 0.6 - 1.0 / 0.6 - 0.9 cm IVS Systolic Thickness 1.2 cm LVPW Diastolic Thickness 1.1 cm 0.6 - 1.0 / 0.6 - 0.9 cm LVPW Systolic Thickness 1.3 cm LVOT Diameter 2.0 cm LV Ejection Fraction 2D Teich 7.6 % LV Ejection Fraction MOD 4C 35.9 % LV Ejection Fraction MOD 2C 37.1 % LV Ejection Fraction 2C AL 39.2 % LA Diameter 3.8 cm RA Systolic Volume 4C AL 33.7 ml RA Systolic Volume 4C MOD 33.4 ml LA Sys Volume AL 49.1 cm cubed LA Sys Volume Index AL 24.6 cm cubed/m squared Aorta at Sinotubular Diameter 0.0 cm IVC Diameter 1.9 cm M-MODE LA Ao Ratio MM 1.9 AV Cusp Separation MM 1.3 cm DOPPLER AV Peak Velocity 143.0 cm/s LVOT Peak Velocity 95.0 cm/s AV Area Cont Eq vti 2.3 cm squared AV Area Cont Eq pk 2.0 cm squared MV Peak Velocity 140.0 cm/s MV Area PHT 6.0 cm squared Mitral E to A Ratio 1.3 TR Peak Velocity 78.0 cm/s TR Peak Gradient 2.4 mmHg TV Peak E Velocity 82.0 cm/s PV Peak Velocity 71.0 cm/s FINDINGS Left Ventricle Moderately increased left ventricular cavity size. Severely decreased left ventricular systolic function. Global left ventricular hypokinesis. Grade II/IV diastolic dysfunction, moderately elevated filling pressures. Right Ventricle Normal right ventricular size and systolic function. Right Atrium Normal right atrial size. Left Atrium Moderately increased left atrial size. IA Septum Normal appearance of the interatrial septum. Mitral Valve Mildly thickened mitral valve. No mitral valve stenosis. Mild mitral valve regurgitation. Aortic Valve Mild aortic valve calcification. No aortic valve stenosis. Mild aortic valve regurgitation. Tricuspid Valve Normal tricuspid valve structure. No tricuspid valve stenosis or regurgitation. Normal pulmonary pressure. Pulmonic Valve Normal pulmonic valve structure. No pulmonic valve stenosis or regurgitation. Pericardium No pericardial effusion. Aorta Normal diameter of the aortic root and ascending thoracic aorta. IVC Normal IVC diameter. CONCLUSIONS Moderately increased left ventricular cavity size. Severely decreased left ventricular systolic function. Global left ventricular hypokinesis. Grade II/IV diastolic dysfunction, moderately elevated filling There is no pericardial effusion. No significant valvular abnormalities. Right atrial pressure is around 5 mm of mercury. Dariel Mitchell MD (Electronically Signed) Final Date: 13 February 2025 11:19 S
--- NOTE | 2025-02-12 09:13 | PM.HP ---
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 She states she feels as if her heart rate has been high for a little over 1 month. She feels it is worse when laying flat and better when standing. She also mentions she has been having chest pressure as if someone has been standing on her chest. Her symptoms have been particularly worse in the week leading up to admission. 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 She also feels that her heart rate will drop with exertion, with a low of about 45 when walking up an elevation recently. Other associated symptoms include abdominal bloating, cough, and gagging since taking an antibiotic for UTI 6 weeks ago. She denies fever but endorses recent chills. She was particularly dizzy this morning. She denies any lower extremity swelling. Medications/Allergies Home Medications ?Medication ?Instructions ?Recorded ?Confirmed ?Last Taken ?Type No Known Home Medications 06/07/24 02/12/25 Unknown History Allergies Allergy/AdvReac Type Severity Reaction Status Date / Time cephalexin Allergy ALGY-Swell Verified 02/12/25 09:57 Lip/Tongue/Throat Penicillins Allergy ALGY-Swell Verified 02/12/25 09:57 Lip/Tongue/Throat PFSH Acute PFSH: Social History Smoking and tobacco/nicotine status: never used tobacco/nicotine Vitals/I&O/Wt Last Vital Signs Temp 97.4 F L 02/12/25 07:36 Pulse 150 H 02/12/25 08:33 Resp 23 H 02/12/25 08:33 BP 124/100 02/12/25 08:33 Pulse Ox 92 02/12/25 08:33 O2 Del Method Room Air 02/12/25 07:53 Weight last 48 hrs Weight 72.575 kg Physical Exam Const: COMMON NORMALS: no acute distress, patient oriented x3, healthy appearing, alert and well nourished Resp: COMMON NORMALS: normal respiratory effort and No use of accessory muscles OTHER: diminished bilaterally Cardio: OTHER: irregularly irregular, no MGR GI: COMMON NORMALS: Normal to inspection, nondistended, normoactive bowel sounds present, Soft to palpation and non-tender Extremity: OTHER: No lower extremity swelling Neuro: COMMON NORMALS: patient oriented x3 and CN's II-XII intact bilaterally Skin: COMMON NORMALS: no rashes or lesions noted Data 02/12/25 07:49 02/12/25 07:49 Micro: Microbiology 02/12/25 08:03 Blood Culture - Preliminary Blood SPECIMEN COLLECTED 02/12/25 07:58 Blood Culture - Preliminary Blood SPECIMEN COLLECTED A&P Assessment and plan 1. Atrial fibrillation with rapid ventricular response: - New onset without know prior cardiac history - ED has started patient on diltiazem drip. Continue for now - Consult cardiology today - Her [id number] is scored at a 2 for sex and age. If she has CHF, it is a 3. Opt to treat with anticoagulation for now with therapeutic lovenox, She does not appear to be volume overloaded. Her BNP elevation could be from atrial fibrillation alone - Obtain echocardiogram - CXR report mentions bilateral lower lobe patchy opacities which may represent acute pneumonia. Can check procalcitonin to help distinguish. I favor her shortness of breath to be secondary to her atrial fibrillation over infection - Check lipid panel. TSH WNL PDMP PDMP Reviewed: Not Reviewed Attestations Medical Necessity Statement*: Patient will require greater than two midnights to evaluate and treat new onset atrial fibrillation with RVR Coding Level of Care Code Acute Code for Chg Fwd Diagnoses Atrial fibrillation with rapid ventricular response I48.91
--- NOTE | 2025-02-12 10:05 | PC.NURSE ---
This nurse in room to complete patient/family rounding. Upon entering the room, the patient was handing something off to the female that was sitting at bedside. I asked what it was, as it appeared to be an aerosol can. They said it was canned oxygen. I asked if she was having trouble breathing or if she felt short of breath. the patient replied No . The visitor put the can away. I asked that she not use the can any more. The patient verbalized understanding. Charge nurse was notified of event.
[2025-02-12] MEDS: cefTRIAXone 1,000 mg SDV 1000 MG IVP (10:36)
[2025-02-12 13:54] LABS: Troponin 5 6HR 11.22 ng/L (0-10)
[2025-02-12 14:01] LABS: Troponin 5 6HR Delta -1.78 ng/L (0-12)
[2025-02-12 14:13] LABS: Cholesterol 176 mg/dL (0-200); HDL Cholesterol 37 mg/dL (60-100); Thyroid Stimulating Hormone 2.51 uIU/mL (0.27-4.20); Triglycerides 141 mg/dL (0-150)
--- NOTE | 2025-02-12 14:15 | ECG_ITS ---
[employer] Test Date: 2025-02-12 Pat Name: Kostas Magallon Department: Room: [facility] Gender: Female Agency Appointments Supervisor: : 1960 Requested By: Joleen Garcia Order Number: [id number] Donte MD: GENEVIEVE RODRIGUEZ Measurements Intervals [place] Rate: 89 P: 0 CO: 0 QRS: -1 QRSD: 83 T: 166 QT: 370 QTc: 452 Interpretive Statements ATRIAL FIBRILLATION POSSIBLE ANTERIOR MYOCARDIAL INFARCTION , OF INDETERMINATE AGE [30 ms Q WAVE IN V3/V4, OR R < 0.2 mV IN V4] MODERATE T-WAVE ABNORMALITY, CONSIDER LATERAL ISCHEMIA [-0.1+ mV T-WAVE IN I/aVL/V5/V6] Compared to ECG 02/12/2025 09:40:12 Myocardial infarct finding now present Possible ischemia now present T-wave abnormality still present Electronically Signed On 02-13-2025 20:37:38 INTAKE CLERK by GENEVIEVE RODRIGUEZ [email or web address]
[2025-02-12 14:35] LABS: Procalcitonin 0.07 ng/mL (0-0.5)
--- NOTE | 2025-02-12 15:38 | P.CONIM_ITS ---
<Statement entered by Adrián Gonzáles M.D - 02/17/25 11:50> Patient was cared for in conjunction with an advanced practice practitioner.? I reviewed the chart and all pertinent data including imaging, telemetry, and laboratory results.? I discussed the patient in detail with the advanced practice practitioner.? Please see? their documentation for consult note, testing results and agreed upon plan of care for the patient. Providers/Reason For Consult 2 Consulting Physician/Specialty*: Dr. Gonzáles Reason for Consult*: afib rvr Requesting Physician: Dr. Lopez Attending Physician: Rito Sloan MD History of Present Illness History of Present Illness Kostas Magallon is a 64 year old female who states she has no known cardiac history states for several weeks she has had elevated heart rate. She states that she has felt shortness of breath on exertion and some chest tightness. Denies any history of high cholesterol. Denies any hypertension. States that her father had bypass at 80. She has a family member who has had a history of AV ruba reentrant tachycardia. She states that she received a steroid shot several months ago for what she thought was tonsillitis. In the ER EKG showed A-fib with RVR rates in the 140s no acute ST elevation or T wave abnormalities. X-ray showed bilateral lower lobe patchy opacities which may represent acute pneumonia. Yesterday patient reported chills. She has a high white cell of 15.89 with left shift. Renal function is normal. Lactic acid is within normal limits. On exam she has no edema but reports orthopnea and has crackles to bilateral lower lobes. Troponin was 13-10-11. proBNP elevated at 3470. O2 saturation 99% on nasal cannula. Echo ordered but not taken yet. Patient was placed on Cardizem drip currently at 12.5. Heart rates are still elevated at times but much better controlled. Current heart rate 87 blood pressure 127/72. She is tolerating the drip well. Review of Systems 2 Narrative: Reports shortness of breath on exertion, reports orthopnea Denies any chest pain at this time but did report 1 episode of chest pressure earlier today Denies any skin or abnormalities Denies any signs or symptoms of stroke denies history of stroke Medications/Allergies Home Medications ?Medication ?Instructions ?Recorded ?Confirmed ?Last Taken ?Type No Known Home Medications 06/07/2401/22 Unknown History Allergies Allergy/AdvReac Type Severity Reaction Status Date / Time cephalexin Allergy ALGY-Swell Verified 02/12/25 09:57 Lip/Tongue/Throat Penicillins Allergy ALGY-Swell Verified 02/12/25 09:57 Lip/Tongue/Throat Current Medications Generic Name Dose Route Start Last Admin Trade Name Wolfgangq PRN Reason Stop Dose Admin Enoxaparin Sodium 70 mg 02/12/25 10:00 02/12/25 10:37 Enoxaparin 80 Mg/0.8 Ml Syringe SUBCUT 70 mg Q12H KAMILLA Administration DILTIAZEM HCL/D5W 125 mg in 125 mls @ 0 mls/hr 02/12/25 08:45 02/12/25 13:59 Cardizem IV 12.5 mg/hr .Q0M KAMILLA 12.5 mls/hr Protocol Titration Per Protocol PFSH Acute 2 PFSH: Social History Smoking and tobacco/nicotine status: never used tobacco/nicotine Vitals/I&O/Wt Last Vital Signs Temp 98.1 F 02/12/25 13:45 Pulse 101 H 02/12/25 13:45 Resp 24 H 02/12/25 13:45 BP 81/68 02/12/25 13:45 Pulse Ox 95 02/12/25 13:45 O2 Del Method Room Air 02/12/25 13:45 02/12/25 02/12/25 02/12/25 06:59 14:59 22:59 Intake Total 79.750 / 79.750 Balance 79.750 / 79.750 Weight last 48 hrs Weight 188 lb 7.924 oz Weight 160 lb Physical Exam 2 Narrative: General: No apparent distress HENMT: normoceophalic Neck: No carotid bruit bilaterally Muskuloskeletal: Full ROM Respiratory: Normal respiratory effort, coarse crackles bilateral lower lobes posteriorly, no use of accessory muscles Cardio: No JVD, irregularly irregular rate and rhythm, S1 S2 normal, no murmurs, peripheral pulses 2+ radial palpated bilaterally Extremities: Full ROM, normal, normal capillary refill, no cyanosis or edema Neuro: Alert and oriented x4 Psych: Affect normal Skin: No rashes or lesions noted, no wounds Data 02/12/25 07:49 02/12/25 07:49 Micro: Microbiology 02/12/25 08:03 Blood Culture - Preliminary Blood SPECIMEN COLLECTED 02/12/25 07:58 Blood Culture - Preliminary Blood SPECIMEN COLLECTED A&P Assessment and plan 1. New onset atrial fibrillation: 2. Atrial fibrillation with rapid ventricular response: 3. New onset of congestive heart failure: Plan: Patient has new onset A-fib RVR rates currently controlled. Continue Cardizem drip. Agree with lovenox q12 for stroke coverage. Patient has crackles with elevated probnp and orthopnea. Recommend lasix 40 IVPx1. Echo being ordered. Further recommendations pending. Thank you, Dr. Lopez, for allowing us to care for this very pleasant 64 year old female. PDMP PDMP Reviewed: Not Reviewed Coding Level of Care Code Acute Code for Chg Fwd Diagnoses New onset atrial fibrillation I48.91 Atrial fibrillation with rapid ventricular response I48.91 New onset of congestive heart failure I50.9
[2025-02-12] MEDS: FUROsemide 10 mg/mL SDV 4mL 40 MG IVP (17:14)
[2025-02-12] MEDS: DILTIAZEM HCL/D5W 125 MG/125 ML BAG 10 MG IV (18:54)
--- NOTE | 2025-02-12 19:52 | PC.NURSE ---
Patients son, Migue Vergara, allowed to have information regarding mothers care.
[2025-02-12] MEDS: MELATONIN 3 MG TABLET PO (21:57)
--- NOTE | 2025-02-12 23:33 | PC.NURSE ---
Addendum entered by JAYLYN Adamson 02/12/25 23:57: gave orders for a urine drug screen. Order placed. Original Note: notified that patients cardizem was paused due to bradycardia and soft blood pressures. stated it was fine to leave Cardizem off as long as rate is controlled. Provider put in orders for 12.5mg PO Metoprolol to be administered. Currently waiting on patients blood pressure and heartrate to begin trending upward before administration of medication.
[2025-02-13] VITALS (100 sets, daily range): BP systolic 65–133; BP diastolic 48–95; PULSE 83–151; RESP 14–37; TEMP 36.4–36.8; O2SAT 81–98; BMI 32.3
[2025-02-13 01:01] LABS: PCP Screen Urine Negative (Negative)
[2025-02-13] MEDS: metoprolol succinate ER (24 HR) 25 mg Tablet 50 MG PO (09:16)
[2025-02-13 10:03] LABS: Hematocrit 39.1 % (36-47); Hemoglobin 12.40 g/dL (11.27-16.99); Mean Corpuscular HGB Conc 31.7 g/dL (30-55); Mean Corpuscular Hemoglobin 30.2 pg (27-33); Mean Corpuscular Volume 95.1 fl (85-98); Nucleated Red Blood Cells % 0 %; Platelet Count 235 10^3/cmm (157-399); Red Blood Count 4.11 10^6/uL (3.85-5.65); White Blood Count 12.21 10^3/uL (3.29-11.43)
[2025-02-13 10:17] LABS: Alanine Aminotransferase 39 U/L (0-33); Albumin Level 3.9 g/dL (3.5-5.2); Alkaline Phosphatase 87 U/L (35-105); Anion Gap 15.8 (5-19); Aspartate Amino Transferase 21 U/L (0-32); Blood Urea Nitrogen 14 mg/dL (8-23); Calcium 9.1 mg/dL (8.5-10.5); Carbon Dioxide 27 mmol/L (22-29); Chloride 102 mmol/L (98-107); Globulin 2.5 g/dL (1.3-4.6); Glucose 133 mg/dL (65-115); Osmolality Calculated 294 mOsm/kg (285-295); Potassium 3.8 mmol/L (3.5-5.1); Sodium 141 mmol/L (136-145); Total Protein 6.4 g/dL (6.6-8.7)
--- NOTE | 2025-02-13 10:49 | ECG_ITS ---
[employer] Test Date: 2025-02-13 Pat Name: Kostas Magallon Department: Room: [facility] Gender: Female Operations Support Coordinator: : 1960 Requested By: Ivonne Carter Order Number: [id number] Reading MD: GENEVIEVE RODRIGUEZ Measurements Intervals [place] Rate: 133 P: 0 UT: 0 QRS: -21 QRSD: 90 T: 150 QT: 313 QTc: 467 Interpretive Statements ATRIAL FIBRILLATION WITH RAPID VENTRICULAR RESPONSE POSSIBLE ANTERIOR MYOCARDIAL INFARCTION , PROBABLY OLD [30 ms Q WAVE IN V3/V4, OR R < 0.2 mV IN V4] ABNORMAL RHYTHM ECG Compared to ECG 02/12/2025 14:15:25 T-wave abnormality no longer present Possible ischemia no longer present Myocardial infarct finding still present Electronically Signed On 02-13-2025 20:34:57 LINK FABRIC MACHINE OPERATOR by GENEVIEVE RODRIGUEZ [email or web address]
[2025-02-13 11:42] LABS: Magnesium 1.9 mg/dL (1.7-2.3); NT Pro B Type Natriuretic Pept 2167 pg/mL (0-125)
[2025-02-13] MEDS: digoxin 250 mcg/ml INJ 2 mL IVP (11:52)
[2025-02-13] MEDS: FUROsemide 10 mg/mL SDV 2mL 20 MG IVP ×2 (12:29→18:10)
--- NOTE | 2025-02-13 14:55 | P.PN_ITS ---
Subjective 2 Subjective: Attended patient at bedside, she is sitting up with nasal cannula oxygen at 2 L, saturating 92%. She is tachypneic, but awake conversant. She told me that her father recently and shortly thereafter she started getting these palpitations and shortness of breath. Reports she cannot walk more than several steps without feeling short of breath prior to coming to the hospital. Next Patient has no previous history reported of atrial fibrillation, cardiac issues, cardiac disease, no known family history. Overnight she was titrated on the Cardizem drip, which had to be discontinued due to hypotension and poor rate control. ? Administered 50 mg of metoprolol succinate one-time, with as needed 15 mg IV Cardizem pushes. Discussed with nurse at bedside, discussed with cardiology CRISTIAN. Vitals/I&O/Wt Last Vital Signs Temp 97.6 F 02/13/25 07:45 Pulse 96 02/13/25 14:00 Resp 29 H 02/13/25 12:45 BP 94/80 02/13/25 12:45 Pulse Ox 91 02/13/25 12:45 O2 Del Method Nasal Cannula 02/13/25 12:45 O2 Flow Rate 2 02/13/25 12:45 02/12/25 02/13/25 02/13/25 22:59 06:59 14:59 Intake Total 216.708 / 296.458 2 / 298.458 600 / 600 Output Total 450 / 450 950 / 950 Balance 216.708 / 296.458 -448 / -151.542 -350 / -350 Weight last 48 hrs Weight 85.593 kg Weight 85.5 kg Weight 85.5 kg Weight 72.575 kg Physical Exam 2 Narrative: General: Mild distress HENMT: normoceophalic Neck: No carotid bruit bilaterally Muskuloskeletal: Full ROM Respiratory: Tachypnea, coarse crackles bilaterally, shallow breathing, no use of accessory muscles Cardio: No JVD, irregularly irregular rate and rhythm, S1 S2 normal, no murmurs, peripheral pulses 2+ radial palpated bilaterally Extremities: Full ROM, normal, normal capillary refill, no cyanosis or edema Neuro: Alert and oriented x4 Psych: Affect normal Skin: No rashes or lesions noted, no wounds Data 02/13/25 09:52 02/13/25 09:52 Micro: Microbiology 02/12/25 08:03 Blood Culture - Preliminary Blood NEGATIVE TO DATE 02/12/25 07:58 Blood Culture - Preliminary Blood NEGATIVE TO DATE A&P Assessment and plan 1. Atrial fibrillation with rapid ventricular response: Newly diagnosed without any cardiac history, echocardiogram shows diffuse ventricular hypoactivity, no wall motion abnormalities. ? Differential diagnosis includes hyperthyroidism, obstructive sleep apnea, early coronary artery disease, Takotsubo cardiomyopathy while in a state of mourning the of her father. -Rate controlled to be managed by cardiology, agree with inotropic digoxin for now. Check digoxin plasma level 12 hours after administration times -Appreciate cardiology recommendations -Patient has minimal risk of cardioembolic stroke, [id number] 3. Maintains on heparin gtt. -Independently reviewed echocardiogram - CXR report mentions bilateral lower lobe patchy opacities which may represent acute pneumonia. Can check procalcitonin to help distinguish. I favor her shortness of breath to be secondary to her atrial fibrillation over infection - TSH WNL ? Diuretics per cardiology Disposition: Patient remains in ICU, has severe functional Brown, focus on rate control and pressure support PDMP PDMP Reviewed: Not Reviewed Attestations 2 Medical Necessity Statement*: Patient will require greater than two midnights to evaluate and treat new onset atrial fibrillation with RVR Coding Level of Care Code Critical Care >/= 30 minutes Critical care time (in minutes): 45 The high probability of a clinically significant, sudden or life threatening deterioration, as referenced in this documentation, required my full and direct attention, intervention and personal management. The critical care time shown is in addition to time spent performing any reported separately billable procedures and includes the following: [x] Data and vital sign review and interpretation [x ] Patient assessment, examination and intervention [x] Medication orders and management [x] Patient/Family updates as able [x] Care Coordination and Documentation. Diagnoses Atrial fibrillation with rapid ventricular response I48.91
--- NOTE | 2025-02-13 15:00 | PC.NURSE ---
Dr. Gonzáles ordered to start amiodarone bolus and drip.
--- NOTE | 2025-02-13 15:06 | PC.NURSE ---
Dr. Gonzáles ordered to stop digoxin doses.
[2025-02-13] MEDS: amiodarone 150 MG/100 ML PREMIX 400 MG IV (15:09)
[2025-02-13] MEDS: AMIODARONE HCL/D5W 900 MG/500 ML BAG 33.33 MG IV (15:30)
--- NOTE | 2025-02-13 15:31 | P.PN_ITS ---
<Statement entered by Adrián Gonzáles M.D - 02/17/25 12:18> Patient was cared for in conjunction with an advanced practice practitioner.? I reviewed the chart and all pertinent data including imaging, telemetry, and laboratory results.? I discussed the patient in detail with the advanced practice practitioner.? Please see? their documentation for progress note, testing results and agreed upon plan of care for the patient. Subjective 2 Subjective: Patient was seen this morning on rounds. She was hypotensive and Cardizem had to be stopped. There was report of heart rate in the 30s patient was asleep asymptomatic and it looks like artifact on review will continue to monitor for this. My assessment the Cardizem drip was shut off. Vitals/I&O/Wt Last Vital Signs Temp 97.6 F 02/13/25 07:45 Pulse 96 02/13/25 14:00 Resp 29 H 02/13/25 12:45 BP 94/80 02/13/25 12:45 Pulse Ox 91 02/13/25 12:45 O2 Del Method Nasal Cannula 02/13/25 12:45 O2 Flow Rate 2 02/13/25 12:45 02/13/25 02/13/25 02/13/25 06:59 14:59 22:59 Intake Total 2 / 298.458 600 / 600 Output Total 450 / 450 950 / 950 450 / 1400 Balance -448 / -151.542 -350 / -350 -450 / -800 Weight last 48 hrs Weight 188 lb 11.2 oz Weight 188 lb 7.924 oz Weight 188 lb 7.924 oz Weight 160 lb Physical Exam 2 Narrative: General: No apparent distress HENMT: normoceophalic Neck: No carotid bruit bilaterally Muskuloskeletal: Full ROM Respiratory: Normal respiratory effort, coarse crackles bilateral lower lobes posteriorly, no use of accessory muscles Cardio: No JVD, irregularly irregular rate and rhythm, S1 S2 normal, no murmurs, peripheral pulses 2+ radial palpated bilaterally Extremities: Full ROM, normal, normal capillary refill, no cyanosis or edema Neuro: Alert and oriented x4 Psych: Affect normal Skin: No rashes or lesions noted, no wounds Data 02/13/25 09:52 02/13/25 09:52 Micro: Microbiology 02/12/25 08:03 Blood Culture - Preliminary Blood NEGATIVE TO DATE 02/12/25 07:58 Blood Culture - Preliminary Blood NEGATIVE TO DATE A&P Assessment and plan 1. New onset atrial fibrillation: 2. Atrial fibrillation with rapid ventricular response: 3. New onset of congestive heart failure: Plan: Patient still has some crackles but shortness of breath is improved and she has responded to Lasix yesterday. Due to hypotension will give Lasix 20 mg IV today. Will start GDMT once patient is euvolemic and heart rate controlled. She may need cardioversion in the future. Echo showed severely decreased left ventricular systolic function with global left ventricular hypokinesis grade 2 out of 4 diastolic dysfunction. Digoxin 250 mcg was given IVP x1. Patient's heart rate remained elevated. This was d/c. Patient was given amio bolus with drip with better rate control. Thank you, Dr. Lopez, for allowing us to care for this very pleasant 64 year old female. PDMP PDMP Reviewed: Not Reviewed Attestations 2 Medical Necessity Statement*: Deferred to primary Coding Level of Care Code Acute Code for [facility] Fwd Diagnoses New onset atrial fibrillation I48.91 Atrial fibrillation with rapid ventricular response I48.91 New onset of congestive heart failure I50.9
--- NOTE | 2025-02-13 23:02 | P.ANESASSM_ITS ---
Pre-Anesthetic Assessment Height/Weight: Height 5 ft 4 in Weight 188 lb 11.2 oz Temp Pulse Resp BP Pulse Ox O2 Del Method O2 Flow Rate 98.2 F 103 H 30 H 98/70 94 Nasal Cannula 2 02/13/25 20:00 02/13/25 21:36 02/13/25 20:00 02/13/25 20:00 02/13/25 20:00 02/13/25 20:00 02/13/25 20:00 Anesthetic Plan ASA status: 4 Anesthesia: MAC Other: Patient initially admitted on 02/12/25 with new onset A fib with RVR Patient admits to SOB with any activity for the past month No prior issues with anesthesia Patient takes no home meds She was initially placed on a cardizem gtt but became hypotensive so this was switched over to amio initial BNP 3470, repeat today showing 2167 All other lab work reviewed and acceptable for procedure Patient currently on 2L O2 Per chart review, 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 Echo performed during hospitalization showing diffuse left ventricular hypokenisis with EF around 35% Plan for Mac anesthesia Medications/Allergies Home Medications ?Medication ?Instructions ?Recorded ?Confirmed ?Last Taken ?Type No Known Home Medications 06/07/2401/22 Unknown History Allergies Allergy/AdvReac Type Severity Reaction Status Date / Time cephalexin Allergy ALGY-Swell Verified 02/12/25 09:57 Lip/Tongue/Throat Penicillins Allergy ALGY-Swell Verified 02/12/25 09:57 Lip/Tongue/Throat Current Medications Generic Name Dose Route Start Last Admin Trade Name Freq PRN Reason Stop Dose Admin Enoxaparin Sodium 70 mg 02/12/25 10:00 02/13/25 21:23 Enoxaparin 80 Mg/0.8 Ml Syringe SUBCUT 70 mg Q12H KAMILLA Administration AMIODARONE HCL/D5W 900 mg in 500 mls @ 0 mls/hr 02/13/25 15:00 02/13/25 21:25 Amiodarone 900 Mg/500 Ml-D5w IV 0.01 mg/min .Q0M KAMILLA 0.5 mls/hr Protocol Titration Per Protocol Melatonin 3 mg 02/12/25 21:33 02/12/25 21:57 Melatonin 3 Mg Tablet PO 3 mg BEDTIME PRN Administration SLEEP PFSH Anesthesia Social History Smoking and tobacco/nicotine status: never used tobacco/nicotine Data Anesthesia 02/13/25 09:52 02/13/25 09:52 Short CBC 02/12/25 02/13/25 Range/Units 07:49 09:52 WBC 15.89 H 12.21 H (3.29-11.43) 10^3/uL Hgb 13.20 12.40 (11.27-16.99) g/dL Hct 40.4 39.1 (36-47) % MCV 93.7 95.1 (85-98) fl Plt Count 278 235 (157-399) 10^3/cmm Neut % (Auto) 55.5 64.4 % Neut # (Auto) 8.82 H 7.87 H (1.8-7.7) 10^3/uL BMP 02/12/25 02/13/25 07:49 09:52 Sodium 137 141 Potassium 4.1 3.8 Chloride 104 102 Carbon Dioxide 20 L 27 BUN 16 14 Creatinine 0.6 0.8 Glucose 128 H 133 H Calcium 9.3 9.1 Cardiac Enzymes 02/12/25 02/12/25 02/12/25 Range/Units 07:49 08:30 13:22 Troponin T Baseline 13 H (0-10) ng/L Delta Troponin T -2.62 L (0-10) ABS# Troponin T Hi Sens 6Hr 11.22 H (0-10) ng/L Troponin T Hi Sens 6Hr Delta -1.78 L (0-12) ng/L NT-Pro-B Natriuret Pep 3470 H (0-125) pg/mL 02/13/25 Range/Units 09:52 Troponin T Baseline (0-10) ng/L Delta Troponin T (0-10) ABS# Troponin T Hi Sens 6Hr (0-10) ng/L Troponin T Hi Sens 6Hr Delta (0-12) ng/L NT-Pro-B Natriuret Pep 2167 H (0-125) pg/mL Liver Function 02/12/25 02/13/25 Range/Units 07:49 09:52 Total Bilirubin 0.4 0.4 (0.15-1.2) mg/dL AST 24 21 (0-32) U/L ALT 44 H 39 H (0-33) U/L Alkaline Phosphatase 98 87 (35-105) U/L Albumin 4.3 3.9 (3.5-5.2) g/dL Urine 02/12/25 Range/Units 08:09 Urine Color Yellow (Yellow) Urine Appearance Cloudy A (CLEAR) Urine pH 5.0 (5-7) Ur Specific [place] 1.025 (1.005-1.030) Urine Protein 1+ A (Negative) Urine Glucose (UA) Negative (Normal) Urine Ketones Trace (Negative) Urine Nitrate Negative (Negative) Urine Bilirubin Negative (Negative) Ur Leukocyte Esterase 2+ A (Negative) Urine RBC 3-5 (0-2) /hpf Urine WBC 51-100 H (0-5) /hpf Coags 02/12/25 07:49 PT 12.70 INR 0.89 APTT 26.4 Microbiology 02/12/25 08:03 Blood Culture - Preliminary Blood NEGATIVE TO DATE 02/12/25 07:58 Blood Culture - Preliminary Blood NEGATIVE TO DATE Cardiac Studies: 2 Echocardiogram 02/12/25
[2025-02-13 23:32] LABS: Digoxin 0.5 ng/mL (0.6-1.2)
[2025-02-14] VITALS (100 sets, daily range): BP systolic 84–144; BP diastolic 43–98; PULSE 76–116; RESP 13–36; TEMP 36.6–37; O2SAT 73–96
--- NOTE | 2025-02-14 01:55 | PC.NURSE ---
Handoff report to FÁTIMA Paul
--- NOTE | 2025-02-14 09:04 | PC.NURSE ---
Dr. Gonzáles ordered to hold metoprolol dose this morning because he was worried that the patient may go bradicardic after conversion today. Dr. Hyde was called to confirm since he is the one who put the order in. He stated that it was okay to hold dose this morning.
[2025-02-14] MEDS: AMIODARONE HCL/D5W 900 MG/500 ML BAG IV (10:39)
[2025-02-14 11:07] LABS: Hematocrit 39.8 % (36-47); Hemoglobin 12.80 g/dL (11.27-16.99); Mean Corpuscular HGB Conc 32.2 g/dL (30-55); Mean Corpuscular Hemoglobin 30.8 pg (27-33); Mean Corpuscular Volume 95.7 fl (85-98); Nucleated Red Blood Cells % 0 %; Platelet Count 230 10^3/cmm (157-399); Red Blood Count 4.16 10^6/uL (3.85-5.65); White Blood Count 12.56 10^3/uL (3.29-11.43)
[2025-02-14 11:23] LABS: Anion Gap 12.0 (5-19); Blood Urea Nitrogen 11 mg/dL (8-23); Calcium 8.9 mg/dL (8.5-10.5); Carbon Dioxide 29 mmol/L (22-29); Chloride 102 mmol/L (98-107); Glucose 105 mg/dL (65-115); Osmolality Calculated 288 mOsm/kg (285-295); Potassium 4.0 mmol/L (3.5-5.1); Sodium 139 mmol/L (136-145)
--- NOTE | 2025-02-14 11:42 | W.PM.OPSUD ---
Surgery/Procedure H&P Update DATE OF PROCEDURE: February 14, 2025 DATE H&P PERFORMED: 02/12/25 H&P UPDATE INFORMATION: I have reviewed H&P completed within last 30 days, I have examined patient prior to procedure and No changes to prior documentation PREOP DIAGNOSIS: Atrial fibrillation with RVR PRIMARY INDICATION FOR PROCEDURE: Atrial fibrillation with RVR PLANNED PROCEDURE: Transesophageal echocardiogram/ cardioversion Anesthesia team available for sedation
--- NOTE | 2025-02-14 11:45 | USCV_ITS ---
TejashowieEligioKostas Calvert Age: 64 Gender: F : 1960 Exam Date: 02/14/2025 11:58 Ordering Phys: Adrián Gonzáles M.D ([email or web address]) Technologist: SILAS Exam Location: [facility] [place] Indication: ALKA cardioversion BP: / HR: Rhythm: Sinus Technical Quality: Good MEASUREMENTS (Male / Female) Normal Values Medications Per anesthesia team Complications None Proc. Components After anesthesia team sedated patient, we proceeded with advancing ALKA probe. FINDINGS Left Ventricle LV systolic function is severely reduced. Right Ventricle RV is normal in function Right Atrium Normal in size Left Atrium Appears to be dilated IA Septum Grossly normal LA Appendage No left atrial appendage thrombus seen Mitral Valve Structurally normal mitral valve. Aortic Valve Aortic valve is thickened. Tricuspid Valve Structurally normal tricuspid valve. Pulmonic Valve Grossly normal Pericardium Normal Aorta Appears to be normal CONCLUSIONS LV systolic function is severely reduced Left atrial dilation No left atrial appendage thrombus seen Adrián Gonzáles MD (Electronically Signed) Final Date: 14 February 2025 14:02 S
--- NOTE | 2025-02-14 12:08 | PC.NURSE ---
Addendum entered by Kye Anderson RN 02/14/25 13:13: Instead of 500 mg, 250 mg, 125 mg of digoxin it was 500 mcg, 250 mcg,125 mcg of digoxin. Original Note: Dr. Gonzáles packer and anesthesia were present at bedside to perform ALKA for cardioversion. Cardioversion was performed with 120 joules for the first shock with no response. Patient then was shocked with 200 joules with no response. One last shock was performed at 200 joules with no response. Patient is currently still in A-fib. Dr. Gonzáles ordered to give 500 mg of Digoxin now, 250 mg in 6 hours then 125 mg daily.
[2025-02-14] MEDS: digoxin 250 mcg/ml INJ 2 mL 500 MCG IVP (12:49)
--- NOTE | 2025-02-14 13:02 | PM.PROC ---
Procedure Note: Date of procedure: 02/14/25 Pre-procedure diagnosis: Atrial fibrillation with RVR Post-procedure diagnosis: other (Atrial fibrillation) Procedure: After anesthesia team sedated patient, we proceeded with advancing ALKA probe. No left atrial appendage thrombus was seen. Patient received 3 synchronized shocks at 120J, 200J and 200J energy however patient failed to convert to sinus rhythm. We will continue anticoagulation. Continue amiodarone. Starting digoxin. Plan for left heart cath tomorrow to rule out ischemia as patient has severely reduced LV function and develops chest pressure with tachycardia Performing Provider: Adrián Gonzáles Complications: None Condition: stable Disposition: no change Coding Level of Care Code Acute Code for g Fwd
--- NOTE | 2025-02-14 16:18 | P.PN_ITS ---
Subjective 2 Subjective: Patient's blood pressure well-controlled today, she is in cardiac suite attempting cardioversion. Unsuccessful. Heart rate is stable under 100 after being loaded with digoxin and metoprolol succinate continues. Patient states that she is having anxiety, I told her I would give her half a dose 0.5 mg of Ativan if she is having severe anxiety, but she declined to take it and instead fell asleep. Other than anxiety, patient has no complaints. She feels no palpitations. Vitals/I&O/Wt Last Vital Signs Temp 97.6 F 02/15/25 20:00 Pulse 91 02/15/25 20:00 Resp 16 02/15/25 20:00 BP 109/62 02/15/25 20:00 Pulse Ox 92 02/15/25 20:00 O2 Del Method Nasal Cannula 02/15/25 11:00 O2 Flow Rate 2 02/15/25 11:00 02/15/25 02/15/25 02/16/25 14:59 22:59 06:59 Intake Total 240 / 240 501.333 / 741.333 Output Total 300 / 300 Balance -60 / -60 501.333 / 441.333 Weight last 48 hrs Weight 84.5 kg Weight 83.824 kg Physical Exam 2 Narrative: General: Mild distress HENMT: normoceophalic Neck: No carotid bruit bilaterally Muskuloskeletal: Full ROM Respiratory: Tachypnea, coarse crackles bilaterally, shallow breathing, no use of accessory muscles Cardio: No JVD, irregularly irregular rate and rhythm, S1 S2 normal, no murmurs, peripheral pulses 2+ radial palpated bilaterally Extremities: Full ROM, normal, normal capillary refill, no cyanosis or edema Neuro: Alert and oriented x4 Psych: Affect normal Skin: No rashes or lesions noted, no wounds Data 02/14/25 10:56 02/15/25 11:37 A&P Assessment and plan 1. Atrial fibrillation with rapid ventricular response: Newly diagnosed without any cardiac history, echocardiogram shows diffuse ventricular hypoactivity, no wall motion abnormalities. ? Differential diagnosis includes obstructive sleep apnea, early coronary artery disease, Takotsubo cardiomyopathy while in a state of mourning the of her father. -Rate controlled to be managed by cardiology, agree with inotropic digoxin for now. Check digoxin plasma level 12 hours after administration times -Appreciate cardiology recommendations -Patient has minimal risk of cardioembolic stroke, [id number] 3. Transition to therapeutic enoxaparin -Independently reviewed echocardiogram - CXR report mentions bilateral lower lobe patchy opacities which may represent acute pneumonia. Can check procalcitonin to help distinguish. I favor her shortness of breath to be secondary to her atrial fibrillation over infection - TSH WNL ? Diuretics per cardiology Disposition: Patient remains in ICU, improvement in respiratory effort, functional capacity with rate control, focus on rate control and pressure support PDMP PDMP Reviewed: Not Reviewed Attestations 2 Medical Necessity Statement*: Patient requires a stay of 2 midnights or more, for medication management for rate control in a patient with new onset A-fib RVR. Plan for left heart cath tomorrow to rule out ischemia in light of the patient's severely reduced LV function Coding Level of Care Code Critical Care >/= 30 minutes Critical care time (in minutes): 39 The high probability of a clinically significant, sudden or life threatening deterioration, as referenced in this documentation, required my full and direct attention, intervention and personal management. The critical care time shown is in addition to time spent performing any reported separately billable procedures and includes the following: [x] Data and vital sign review and interpretation [x ] Patient assessment, examination and intervention [x] Medication orders and management [x] Patient/Family updates as able [x] Care Coordination and Documentation. Diagnoses Atrial fibrillation with rapid ventricular response I48.91
[2025-02-14] MEDS: digoxin 250 mcg/ml INJ 2 mL IVP (18:14)
[2025-02-15] VITALS (74 sets, daily range): BP systolic 81–153; BP diastolic 48–98; PULSE 70–121; RESP 15–43; TEMP 35.9–36.4; O2SAT 86–96; BMI 31.9
[2025-02-15] MEDS: digoxin 250 mcg/ml INJ 2 mL 125 MCG IVP (04:10)
[2025-02-15] MEDS: metoprolol succinate ER (24 HR) 25 mg Tablet PO (04:11)
--- NOTE | 2025-02-15 06:40 | XACV_ITS ---
Exam Room: 2 Ht: 163 cm Wt: 84 kg BSA: 1.98 m2 Gender: Female : 1960 Any Known Allergies: Penicillins Exam Priority: Routine Procedure(s): Procedure Description: Diagnostic procedure Procedure Description: Left Heart Catheterization Procedure Description: Left ventriculography Procedure Description: Coronary Angiography Diagnostic Cath Status: Urgent Diagnostic Findings * INDICATION: LV dysfunction. * No significant disease noted in the Left Main, Left Anterior Descending, Right, or Circumflex coronary arteries. * Coronary angiography shows right dominance. Conclusions 1. No significant disease noted in the Left Main, Left Anterior Descending, Right, or Circumflex coronary arteries. 2. Severe left ventricular systolic dysfunction. Ejection fraction of 25%. Recommendations * Aggressive guideline directed heart failure therapy. * Outpatient cardiology follow up in 2 weeks. Diagnostic RX Recommendation: medical therapy and/or counseling Ventriculography Ejection Fraction: 25.0 % Pressures Phase:Rest AO : 104 / 83 ( 94 ) @ 9:42:00 AM 115 / 82 ( 89 ) @ 9:47:00 AM 129 / 74 ( 95 ) @ 9:47:00 AM LV : 147 / -5 / 17 @ 9:45:00 AM 140 / -4 / 11 @ 9:47:00 AM 141 / -3 / 15 @ 9:47:00 AM Valves Phase:DefaultPhase AV : 27.0 @ 9:54:53 AM AV Mean Gradient: 22.0 @ 9:54:53 AM 22.0 @ 9:54:53 AM Clinical Evaluation EBL: 5mL-10mL Procedural Details Procedure Consent Obtained. Pre-Procedure Time Out. Identified patient by full name and date of as verbalized by the patient/guarantor. Does the consent match the physician's order: Yes. Accurate & Complete Informed Consent: Yes. Inpatient/Outpatient History & Physical on Chart: Yes. If H&P is completed, is and addenduem needed: No. Visualize and Verify Site with Patient/Guarantor: N/A. Relevant Radiology Images available: Yes. The risks, benefits, and alternatives of sedation and/or procedure were discussed by physician. The patient agrees to continue. Procedure started. [facility] Clinical Fraility Score: 3: Managing Well. 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 Chest Pain Symptom Assessment: Atypical Angina. Cardiovascular Instability: No. Correct patient, site and procedure confirmed by cath team. PERRLA. Strong, equal hand log haul chain feeder bilaterally. Lungs clear x 5 lobes. IV Site on Arrival: 20 gauge in the left wrist. IV Fluids: 0.9% NaCl at KVO. 0 mL infused prior to clinical laboratory technician. Pre Procedural Pulses: right radial was 2+. Oxygen started at 2liters/min via nasal canula. right groin was prepped with chloroprep then draped in the usual sterile fashion. right radial was prepped with chloroprep then draped in the usual sterile fashion. Physician notified. Baseline sample Acquired. HR: 95 BPM. Patient's family in the clinical laboratory technician waiting room. Dr. Gonzáles will update at the completion of the procedure. Equipment: 6F - Radial. Cardiac Cath Pack. ACIST Manifold Kit Model BT 2000. Heparinized Saline (2 units/mL), 1000 mL bag. Physician arrived. Amiodarone at 0.5mg/min on arrival to the clinical laboratory technician. Physician scrubbed in. Immediate Pre-Procedure Time Out. Correct Patient: Yes; Correct Procedure: Yes; Correct Site: Yes; Correct Patient Position: Yes; Correct Supplies: Yes; Dried Flammable Prep: Yes; Blood Products Available: N/A;. Lidocaine 1% infiltrated to the right radial. Arterial access obtained. A 5 tristanian TIG catheter in over the exchange J wire. Multiple views taken of left coronary artery. Catheter redirected to the RCA. Multiple views taken of right coronary artery. Catheter removed over the exchange J wire. A 5 tristanian Angled Pig catheter in over the exchange J wire. EDP Sample taken: LV 147/-6,17; HR: 85 BPM; SpO2: 94%. LV gram performed in MERAZ @ 10 mL/second for a total of 20 mL. EDP Sample taken: LV 140/-5,11; HR: 92 BPM; SpO2: 95%. Pullback taken: LV 141/-4,15; AO 115/82(89); Mean: 22mmHg, Peak to Peak: 27mmHg, SEP: 22sec/min; HR: 95 BPM; SpO2: 93%. Catheter removed over the exchange J wire. Dr. Gonzáles scrubbed out. A TR Band was successful obtaining hemostatsis at the Right Radial artery insertion site. Post Procedure: Pulses reassessed and unchanged. PERRLA. Strong, equal hand log haul chain feeder bilaterally. No VTE prophylaxis required. Medication's Wasted: Lidocaine 1% = 18 mL. Medication's Wasted: Nitro = 49.8 mg. Medication's Wasted: Heparin = 1000 units. Medication's Wasted: Other = Versed 1 mg. Medication's Wasted: Other = Fentanyl 50 mcg. Total IV fluids: 35 mL. Post-op diagnosis: Non-ischemic BINDING END STITCHER, non-obstructive CAD. Complications: none. Estimated blood loss: 5mL-10mL. Responsiveness - Normal response to verbal stimuli; alert and oriented, PERRLA. Airway - Unaffected, no intervention required; spontaneous ventilation. Circulation: W/N/L, pulses unchanged. Nausea/Vomiting: No. Vital chart was stopped. Procedure completed. Patient transferred by bed to ICU. Access Site Site: Right Radial artery Sheath Size: 6 Fr Hemostasis Method: TR Band Hemostasis Success: Successful Procedure Medications Start: 9:26 AM Stop: 9:26 AM Medication: Versed Amount: 1 mg Route: I.V. Start: 9:27 AM Stop: 9:27 AM Medication: Fentanyl Amount: 25 mcg Route: I.V. Start: 9:37 AM Stop: 9:37 AM Medication: Fentanyl Amount: 25 mcg Route: I.V. Start: 9:39 AM Stop: 9:39 AM Medication: Nitrogylcerin Amount: 200 mcg Route: I.A. Start: 9:41 AM Stop: 9:41 AM Medication: Heparin Amount: 5000 units Route: I.V. I, the attending physician, have reviewed and verified all procedure medications. Yes, all medications given per verbal order History/Risk Factors Hypertension: No Dyslipidemia: No Peripheral Arterial Disease (PAD): No Myocardial Infarction (AZ): No Obesity: No Renal Disease: No Prior Interventions PCI: No CABG: No Valve Surgery: No Report Signatures Finalized by Adrián Gonzáles MD on 03/02/2025 12:58 PM
[2025-02-15] MEDS: saline nasal spray 44mL Btl 1 SPRAY NASAL (08:17)
--- NOTE | 2025-02-15 09:16 | W.PM.OPSUD ---
Surgery/Procedure H&P Update DATE OF PROCEDURE: February 15, 2025 DATE H&P PERFORMED: 02/12/25 PREOP DIAGNOSIS: Chest pain/ LV dysfunction PRIMARY INDICATION FOR PROCEDURE: Chest pain/ LV dysfunction PLANNED PROCEDURE: Left heart cath with possible percutaneous coronary intervention PATIENT REASSESSED PRIOR TO SEDATION, WITH NO CHANGE NOTED: Yes PHYSICAL EXAM: alert, oriented x 3, clear to auscultation bilaterally and regular rate & rhythm AIRWAY EVAL/ANESTHESIA PLAN: normal airway, ASA III, Local Anesthesia, Risks, benefits & alternatives of sedation and/or procedure discussed and Patient agrees to continue as planned ADDITIONAL INFORMATION: Moderate sedation
--- NOTE | 2025-02-15 10:16 | PM.PROC ---
Procedure Note: Date of procedure: 02/15/25 Pre-procedure diagnosis: LV dysfunction Post-procedure diagnosis: other (Non-ischemic cardiomyopathy) Procedure: Patent coronary arteries. Non-ischemic cardiomyopathy Continue anticoagulation. PO amiodarone and digoxin Performing Provider: Adrián Gonzáles Estimated blood loss (mL): 5 Complications: None Condition: stable Disposition: ICU Coding Level of Care Code Acute Code for [facility] Fwfrancisco j
[2025-02-15 11:59] LABS: Alanine Aminotransferase 25 U/L (0-33); Albumin Level 3.8 g/dL (3.5-5.2); Alkaline Phosphatase 89 U/L (35-105); Anion Gap 13.9 (5-19); Aspartate Amino Transferase 15 U/L (0-32); Blood Urea Nitrogen 8 mg/dL (8-23); Calcium 8.8 mg/dL (8.5-10.5); Carbon Dioxide 28 mmol/L (22-29); Chloride 99 mmol/L (98-107); Globulin 2.8 g/dL (1.3-4.6); Glucose 147 mg/dL (65-115); Osmolality Calculated 285 mOsm/kg (285-295); Potassium 3.9 mmol/L (3.5-5.1); Sodium 137 mmol/L (136-145); Total Protein 6.6 g/dL (6.6-8.7)
--- NOTE | 2025-02-15 12:13 | PC.SOCIAL ---
IMM Update pg 2 of IMM updated and reviewed w/ patient. Copy provided and copy dated, initialed and placed in chart.
--- NOTE | 2025-02-15 13:43 | PC.NURSE ---
Initiated TR band removal at 1205. Removed 1-2ml of air every 15-20 until all air and band removed at this time. No s/s of bleeding or hematoma formation observed. Instructed patient on site care with restrictions. Patient and spouse verbalized complete understanding. Covered site with 2x2 and coban. Patient denies pain to site. Patient is lying right lateral position. No distress observed.
[2025-02-15] MEDS: AMIODARONE HCL/D5W 900 MG/500 ML BAG IV (16:20)
--- NOTE | 2025-02-15 23:19 | PM.PN ---
Subjective Subjective: Patient reports no anxiety today, I interviewed the patient after her heart cath. Conclusively nonischemic cardiomyopathy. Patient denies any palpitations. Heart rate remains controlled, saturating 92% on 2 L nasal cannula. Discussed with patient for potential differential diagnosis. Vitals/I&O/Wt Last Vital Signs Temp 97.6 F 02/15/25 20:00 Pulse 91 02/15/25 20:00 Resp 16 02/15/25 20:00 BP 109/62 02/15/25 20:00 Pulse Ox 92 02/15/25 20:00 O2 Del Method Nasal Cannula 02/15/25 11:00 O2 Flow Rate 2 02/15/25 11:00 02/15/25 02/15/25 02/16/25 14:59 22:59 06:59 Intake Total 240 / 240 501.333 / 741.333 Output Total 300 / 300 Balance -60 / -60 501.333 / 441.333 Weight last 48 hrs Weight 84.5 kg Weight 83.824 kg Physical Exam Narrative: General: Mild distress HENMT: normoceophalic Neck: No carotid bruit bilaterally Muskuloskeletal: Full ROM Respiratory: Tachypnea, coarse crackles bilaterally, shallow breathing, no use of accessory muscles Cardio: No JVD, irregularly irregular rate and rhythm, S1 S2 normal, no murmurs, peripheral pulses 2+ radial palpated bilaterally Extremities: Full ROM, normal, normal capillary refill, no cyanosis or edema Neuro: Alert and oriented x4 Psych: Affect normal Skin: No rashes or lesions noted, no wounds Data 02/14/25 10:56 02/15/25 11:37 A&P Assessment and plan 1. Atrial fibrillation with rapid ventricular response: Newly diagnosed without any cardiac history, echocardiogram shows diffuse ventricular hypoactivity, no wall motion abnormalities. ? Differential diagnosis includes obstructive sleep apnea, early coronary artery disease, Takotsubo cardiomyopathy while in a state of mourning the of her father. -Rate controlled to be managed by cardiology, agree with inotropic digoxin for now. Check digoxin plasma level 12 hours after administration times -Appreciate cardiology recommendations -Patient has minimal risk of cardioembolic stroke, [id number] 3. Transition to therapeutic enoxaparin -Independently reviewed echocardiogram -Infiltrative process seen on chest x-ray, only abnormality on the ALKA other than the cardiomyopathy was the thickened aortic valve. Could be myocardial in filtrated process, such as sarcoid. Patient would benefit from cardiac MRI. - TSH WNL ?This is less likely as patient does have signs of systemic inflammatory disease. 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 Will repeat UA, due to possible UTI/pulmonary process. Blood cultures negative x 2. ? Needs to have strict rate control with heart rate less than 80. Continue beta-logan plus digoxin, amiodarone short-term ? Full GDMT early ? ARNI/JOSÉ Beta-logan (Will titrate up to 50 mg) Spironolactone (ordered) Dapagliflozin ? Continue anticoagulation ? Diuretics per cardiology Disposition: Patient remains in ICU, improvement in respiratory effort, functional capacity with rate control, focus on rate control and pressure support PDMP PDMP Reviewed: Not Reviewed Attestations Medical Necessity Statement*: Patient requires a stay of 2 midnights or more, for medication management for rate control in a patient with new onset A-fib RVR. Coding Level of Care Code Critical Care >/= 30 minutes Critical care time (in minutes): 45 The high probability of a clinically significant, sudden or life threatening deterioration, as referenced in this documentation, required my full and direct attention, intervention and personal management. The critical care time shown is in addition to time spent performing any reported separately billable procedures and includes the following: [x] Data and vital sign review and interpretation [x] Patient assessment, examination and intervention [x] Medication orders and management [x] Patient/Family updates as able [x] Care Coordination and Documentation. Diagnoses Atrial fibrillation with rapid ventricular response I48.91 Meds Home Medications and Allergies Home Medications ?Medication ?Instructions ?Recorded ?Confirmed ?Last Taken ?Type No Known Home Medications 06/07/24 02/12/25 Unknown History Allergies Allergy/AdvReac Type Severity Reaction Status Date / Time cephalexin Allergy ALGY-Swell Verified 02/12/25 09:57 Lip/Tongue/Throat Penicillins Allergy ALGY-Swell Verified 02/12/25 09:57 Lip/Tongue/Throat Current Medications Current Medications Generic Name Dose Route Start Last Admin Trade Name Freq PRN Reason Stop Dose Admin Digoxin 125 mcg 02/15/25 05:00 02/15/25 04:10 Digoxin 250 Mcg/Ml Inj 2 Ml IVP 125 mcg DAILY KAMILLA Administration Enoxaparin Sodium 70 mg 02/12/25 10:00 02/15/25 21:27 Enoxaparin 80 Mg/0.8 Ml Syringe SUBCUT 70 mg Q12H KAMILLA Administration Hydroxyzine Pamoate 50 mg 02/13/25 23:15 02/13/25 23:09 Hydroxyzine 25 Mg Capsule PO 50 mg ONCE KAMILLA Administration AMIODARONE HCL/D5W 900 mg in 500 mls @ 0 mls/hr 02/13/25 15:00 02/15/25 19:00 Amiodarone 900 Mg/500 Ml-D5w IV 0.5 mg/min .Q0M KAMILLA 16.67 mls/hr Protocol Titration Per Protocol Lorazepam 0.25 mg 02/14/25 16:48 02/15/25 21:28 Lorazepam 0.5 Mg Tablet PO 0.25 mg Q6H PRN Administration ANXIETY Melatonin 3 mg 02/12/25 21:33 02/12/25 21:57 Melatonin 3 Mg Tablet PO 3 mg BEDTIME PRN Administration SLEEP Metoprolol Succinate 25 mg 02/14/25 08:45 02/15/25 04:11 Metoprolol Succinate Er (24 Hr) 25 Mg Tablet PO 25 mg DAILY KAMILLA Administration Sodium Chloride 1 spray 02/15/25 08:08 02/15/25 08:17 Saline Nasal [place] 44ml Btl NASAL 1 spray PRN PRN Administration DRYNESS
[2025-02-16] VITALS: BP 112/89; PULSE 80; RESP 18; TEMP 36.8; O2SAT 90
[2025-02-16 02:38] LABS: Hematocrit 44.9 % (36-47); Hemoglobin 14.20 g/dL (11.27-16.99); Mean Corpuscular HGB Conc 31.6 g/dL (30-55); Mean Corpuscular Hemoglobin 30.9 pg (27-33); Mean Corpuscular Volume 97.8 fl (85-98); Nucleated Red Blood Cells % 0 %; Platelet Count 199 10^3/cmm (157-399); Red Blood Count 4.59 10^6/uL (3.85-5.65); White Blood Count 12.82 10^3/uL (3.29-11.43)
[2025-02-16 02:57] LABS: Alanine Aminotransferase 19 U/L (0-33); Albumin Level 3.4 g/dL (3.5-5.2); Alkaline Phosphatase 88 U/L (35-105); Blood Urea Nitrogen 11 mg/dL (8-23); Calcium 8.7 mg/dL (8.5-10.5); Carbon Dioxide 26 mmol/L (22-29); Chloride 100 mmol/L (98-107); Globulin 3.0 g/dL (1.3-4.6); Glucose 104 mg/dL (65-115); Magnesium 2.3 mg/dL (1.7-2.3); Osmolality Calculated 280 mOsm/kg (285-295); Sodium 135 mmol/L (136-145); Total Protein 6.4 g/dL (6.6-8.7)
[2025-02-16 03:11] LABS: Anion Gap 13.4 (5-19); Potassium 4.4 mmol/L (3.5-5.1)
[2025-02-16 03:12] LABS: Aspartate Amino Transferase 16 U/L (0-32)
[2025-02-16 04:00] VITALS: BP 133/87; PULSE 90; RESP 26; TEMP 37.2; O2SAT 93
[2025-02-16] MEDS: metoprolol succinate ER (24 HR) 25 mg Tablet 50 MG PO (04:44)
[2025-02-16] MEDS: digoxin 250 mcg/ml INJ 2 mL 125 MCG IVP (04:44)
[2025-02-16 07:18] VITALS: BP 103/71; PULSE 74; RESP 26; TEMP 36.2; O2SAT 96
[2025-02-16 07:33] LABS: Glucose Urine UA Negative (Normal); Nitrate Urine Negative (Negative); Specific Gravity, Urine 1.014 (1.005-1.030)
[2025-02-16 07:35] LABS: Add Urine Microscopic? YES
--- NOTE | 2025-02-16 08:25 | P.PN_ITS ---
Subjective 2 Subjective: Patient is feeling better. Coronary angiogram showed non-ischemic cardiomyopathy Vitals/I&O/Wt Last Vital Signs Temp 97.1 F L 02/16/25 07:18 Pulse 74 02/16/25 07:18 Resp 26 H 02/16/25 07:18 BP 103/71 02/16/25 07:18 Pulse Ox 96 02/16/25 07:18 O2 Del Method Nasal Cannula 02/16/25 04:00 O2 Flow Rate 2 02/15/25 11:00 02/15/25 02/16/25 02/16/25 22:59 06:59 14:59 Intake Total 501.333 / 741.333 Balance 501.333 / 441.333 Weight last 48 hrs Weight 188 lb Weight 186 lb 4.65 oz Physical Exam 2 Const: COMMON NORMALS: no acute distress, patient oriented x3 and alert Resp: COMMON NORMALS: normal respiratory effort and clear to auscultation bilaterally AUSCULTATION: clear to auscultation bilaterally Cardio: COMMON NORMALS: regular rate, regular rhythm, S1 normal heart sound present, S2 normal heart sound present and No murmurs present (Cardio) RATE: regular rate RHYTHM: regular rhythm HEART SOUNDS: S1 normal heart sound present and S2 normal heart sound present Extremity: COMMON NORMALS: no pedal edema Neuro: COMMON NORMALS: patient oriented x3 SENSORIUM/ORIENTATION: Yes alert Data 02/16/25 02:00 02/16/25 02:00 A&P Assessment and plan 1. New onset atrial fibrillation: 2. Atrial fibrillation with rapid ventricular response: 3. New onset of congestive heart failure: Plan: Patient's cardioversion attempt was unsuccessful. She has non-ischemic cardiomyopathy. We will stop lovenox. Started on eliquis 5 mg BID. Amiodarone gtt switched to PO amiodarone 400mg BID for 7 days and then 200mg daily. Continue digoxin. Beta logan added. Based on blood pressure as outpatient, can start entresto as blood pressure has stayed soft. PO lasix 20mg BID Order event monitor On walking, if heart rate stays below 110bpm and on rest less than 100bpm, can be discharged. Thank you for involving us with care of this patient. Please call with questions PDMP PDMP Reviewed: Not Reviewed Attestations 2 Medical Necessity Statement*: Care expected to cross 2 midnights. Coding Level of Care Code Acute Code for Chg Fwd Diagnoses New onset atrial fibrillation I48.91 Atrial fibrillation with rapid ventricular response I48.91 New onset of congestive heart failure I50.9
--- NOTE | 2025-02-16 09:33 | XRR_ITS ---
PROCEDURE INFORMATION: Exam: XR Chest Exam date and time: 02/16/2025 10:14 AM Age: 64 years old Clinical indication: Tachypnea; Additional info: Tachypnea; New onset afib; No previous cardiac HX TECHNIQUE: Imaging protocol: Radiologic exam of the chest. Views: 1 view. COMPARISON: CR XR chest 1V portable [id number] 02/12/2025 07:49 AM FINDINGS: Lungs: Low lung volumes. No consolidation. Pleural spaces: Unremarkable. No pleural effusion. No pneumothorax. Heart/Mediastinum: Prominent cardiac silhouette, likely exaggerated by the lower lung volumes. Bones/joints: Unremarkable. XR/XR chest 1V portable [id number] IMPRESSION: No acute findings.
--- NOTE | 2025-02-16 09:34 | P.PN_ITS ---
Subjective 2 Subjective: Rate better controlled, but tachypneic this morning Order chest x-ray Vitals/I&O/Wt Last Vital Signs Temp 97.1 F L 02/16/25 07:18 Pulse 74 02/16/25 07:18 Resp 26 H 02/16/25 07:18 BP 103/71 02/16/25 07:18 Pulse Ox 96 02/16/25 07:18 O2 Del Method Nasal Cannula 02/16/25 04:00 O2 Flow Rate 2 02/15/25 11:00 02/15/25 02/16/25 02/16/25 22:59 06:59 14:59 Intake Total 501.333 / 741.333 718.381 / 718.381 Balance 501.333 / 441.333 718.381 / 718.381 Weight last 48 hrs Weight 85.275 kg Weight 84.5 kg Data 02/16/25 02:00 02/16/25 02:00 A&P PDMP PDMP Reviewed: Not Reviewed Coding Level of Care Code Acute Code for Chg Marjorie
[2025-02-16 11:50] VITALS: BP 133/84; PULSE 102; RESP 17; O2SAT 96
--- NOTE | 2025-02-16 15:08 | PM.DCS ---
Discharge Providers Date of Admission: 02/12/25 09:18 Date of Discharge: February 16, 2025 Attending Provider at Admission: Rito Sloan MD Attending Provider at Discharge: Thiago Hyde MD Diagnoses at Discharge Discharge Diagnosis 1. New onset atrial fibrillation: 2. Atrial fibrillation with rapid ventricular response: 3. New onset of congestive heart failure: 4. 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 She states she feels as if her heart rate has been high for a little over 1 month. She feels it is worse when laying flat and better when standing. She also mentions she has been having chest pressure as if someone has been standing on her chest. Her symptoms have been particularly worse in the week leading up to admission. 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 She also feels that her heart rate will drop with exertion, with a low of about 45 when walking up an elevation recently. Other associated symptoms include abdominal bloating, cough, and gagging since taking an antibiotic for UTI 6 weeks ago. She denies fever but endorses recent chills. She was particularly dizzy this morning. She denies any lower extremity swelling. Hospital Course Hospital Course No infectious etiology identified during hospital stay. CRP was elevated but nonspecific. Assessment and plan 1. Atrial fibrillation with rapid ventricular response: Newly diagnosed without any cardiac history, echocardiogram shows diffuse ventricular hypoactivity, no wall motion abnormalities. ? Differential diagnosis includes obstructive sleep apnea, early coronary artery disease, Takotsubo cardiomyopathy while in a state of mourning the of her father. -Rate controlled to be managed by cardiology, agree with inotropic digoxin for now. Check digoxin plasma level 12 hours after administration times -Appreciate cardiology recommendations -Patient has minimal risk of cardioembolic stroke, [id number] 3. Transition to therapeutic enoxaparin -Independently reviewed echocardiogram -Infiltrative process seen on chest x-ray, only abnormality on the ALKA other than the cardiomyopathy was the thickened aortic valve. Could be myocardial in filtrated process, such as sarcoid. Patient would benefit from cardiac MRI. - TSH WNL ?This is less likely as patient does have signs of systemic inflammatory disease. 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 UA negative x 2, chest x-ray clear on day of discharge indicating not infectious process. ? Needs to have strict rate control with heart rate less than 80-100 at rest. Continue beta-logan plus digoxin, amiodarone short-term ? Full GDMT early ? ARNI/JOSÉ started?Entresto Beta-logan?metoprolol succinate 50 mg daily Spironolactone?25 mg daily Dapagliflozin?consider starting if stable on the Entresto. Digoxin 125 mcg daily?follow-up with digoxin levels in 1 week, confer with cardiology Amiodarone 400 mg twice daily?rate control/antiarrhythmic medication, continue for now until discussed with cardiology Apixaban 5 mg twice daily?continue anticoagulation Furosemide 20 mg twice daily?for symptomatic management Physical Exam Narrative: General: Mild distress HENMT: normoceophalic Neck: No carotid bruit bilaterally Muskuloskeletal: Full ROM Respiratory: Tachypnea, coarse crackles bilaterally, shallow breathing, no use of accessory muscles Cardio: No JVD, irregularly irregular rate and rhythm, S1 S2 normal, no murmurs, peripheral pulses 2+ radial palpated bilaterally Extremities: Full ROM, normal, normal capillary refill, no cyanosis or edema Neuro: Alert and oriented x4 Psych: Affect normal Skin: No rashes or lesions noted, no wounds Discharge Data Studies Completed and Pending Completed Studies During Hospitalization Category Date Time Status XR chest 1V portable [id number] Routine Exams 02/16/25 09:33 Completed XR chest 1V portable [id number] Stat Exams 02/12/25 07:38 Completed CV. echo complete* [id number] Stat Ultrasound 02/12/25 09:11 Completed CV. echo transesophageal [id number] Routine Ultrasound 02/14/25 11:45 Completed Pending at discharge Category Date Time Status FIRE SUPPRESSION CAPTAIN request for service Routine Exams 02/15/25 06:40 Taken Blood Culture Stat Lab 02/12/25 08:03 Results Radiology Impressions Chest X-Ray 02/16/25 09:33 IMPRESSION: No acute findings. Laboratory Results WBC 12.82 10^3/uL (3.29-11.43) H 02/16/25 02:00 RBC 4.59 10^6/uL (3.85-5.65) 02/16/25 02:00 Hgb 14.20 g/dL (11.27-16.99) 02/16/25 02:00 Hct 44.9 % (36-47) 02/16/25 02:00 MCV 97.8 fl (85-98) 02/16/25 02:00 MCH 30.9 pg (27-33) 02/16/25 02:00 MCHC 31.6 g/dL (30-55) 02/16/25 02:00 RDW 12.7 % (12.1-15.1) 02/16/25 02:00 Plt Count 199 10^3/cmm (157-399) 02/16/25 02:00 MPV 12.7 fL (7.4-10.4) H 02/16/25 02:00 Neut % (Auto) 64.2 % 02/16/25 02:00 Lymph % (Auto) 21.8 % 02/16/25 02:00 [place] % (Auto) 9.4 % 02/16/25 02:00 Eos % (Auto) 3.3 % 02/16/25 02:00 Baso % (Auto) 0.5 % 02/16/25 02:00 Neut # (Auto) 8.23 10^3/uL (1.8-7.7) H 02/16/25 02:00 Lymph # (Auto) 2.8 10^3/uL (0.8-4.8) 02/16/25 02:00 [place] # (Auto) 1.2 10^3/uL (0.2-0.9) H 02/16/25 02:00 Eos # (Auto) 0.4 10^3/uL (0.0-0.8) 02/16/25 02:00 Baso # (Auto) 0.1 10^3/uL (0.0-0.1) 02/16/25 02:00 Nucleated RBC % (auto) 0 % 02/16/25 02:00 Nucleated RBCs # 0.0 /100WBC 02/16/25 02:00 PT 12.70 SECONDS (12.1-14.9) 02/12/25 07:49 INR 0.89 (0.8-1.2) 02/12/25 07:49 APTT 26.4 SECONDS (23.9-36.7) 02/12/25 07:49 Sodium 135 mmol/L (136-145) L 02/16/25 02:00 Potassium 4.4 mmol/L (3.5-5.1) 02/16/25 02:00 Chloride 100 mmol/L (98-107) 02/16/25 02:00 Carbon Dioxide 26 mmol/L (22-29) 02/16/25 02:00 Anion Gap 13.4 (5-19) 02/16/25 02:00 BUN 11 mg/dL (8-23) 02/16/25 02:00 Creatinine 0.6 mg/dL (0.5-0.9) 02/16/25 02:00 GFR Calculation 100.0 mL/min (90-130) 02/16/25 02:00 Glucose 104 mg/dL (65-115) 02/16/25 02:00 Calculated Osmolality 280 mOsm/kg (285-295) L 02/16/25 02:00 Lactic Acid 1.7 mmol/L (0.5-2.2) 02/12/25 07:49 Calcium 8.7 mg/dL (8.5-10.5) 02/16/25 02:00 Phosphorus 3.6 mg/dL (2.5-4.5) 02/16/25 02:00 Magnesium 2.3 mg/dL (1.7-2.3) 02/16/25 02:00 Total Bilirubin 0.5 mg/dL (0.15-1.2) 02/16/25 02:00 AST 16 U/L (0-32) 02/16/25 02:00 ALT 19 U/L (0-33) 02/16/25 02:00 Alkaline Phosphatase 88 U/L (35-105) 02/16/25 02:00 Troponin T Baseline 13 ng/L (0-10) H 02/12/25 07:49 Troponin T 60 Minute 10.38 ng/L (0-10) H 02/12/25 08:30 Delta Troponin T -2.62 ABS# (0-10) L 02/12/25 08:30 Troponin T Hi Sens 6Hr 11.22 ng/L (0-10) H 02/12/25 13:22 Troponin T Hi Sens 6Hr Delta -1.78 ng/L (0-12) L 02/12/25 13:22 NT-Pro-B Natriuret Pep 2167 pg/mL (0-125) H 02/13/25 09:52 Total Protein 6.4 g/dL (6.6-8.7) L 02/16/25 02:00 Albumin 3.4 g/dL (3.5-5.2) L 02/16/25 02:00 Globulin 3.0 g/dL (1.3-4.6) 02/16/25 02:00 Triglycerides 141 mg/dL (0-150) 02/12/25 13:22 Cholesterol 176 mg/dL (0-200) 02/12/25 13:22 LDL Cholesterol, Calc 111 mg/dL (50-129) 02/12/25 13:22 HDL Cholesterol 37 mg/dL (60-100) L 02/12/25 13:22 LDL/HDL Ratio 3.00 RATIO (0.00-3.22) 02/12/25 13:22 Cholesterol/HDL Ratio 4.76 mg/dL (0.0-4.40) H 02/12/25 13:22 Lipase 37 U/L (13-60) 02/12/25 07:49 Procalcitonin 0.07 ng/mL (0-0.5) 02/12/25 07:49 TSH 2.51 uIU/mL (0.27-4.20) 02/12/25 13:22 Urine Color Yellow (Yellow) 02/16/25 07:21 Urine Appearance Clear (CLEAR) 02/16/25 07:21 Urine pH 6.0 (5-7) 02/16/25 07:21 Ur Specific [place] 1.014 (1.005-1.030) 02/16/25 07:21 Urine Protein Negative (Negative) 02/16/25 07:21 Urine Glucose (UA) Negative (Normal) 02/16/25 07:21 Urine Ketones Negative (Negative) 02/16/25 07:21 Urine Blood Negative (Negative) 02/16/25 07:21 Urine Nitrate Negative (Negative) 02/16/25 07:21 Urine Bilirubin Negative (Negative) 02/16/25 07:21 Urine Urobilinogen 0.2 mg/dL (Negative) 02/16/25 07:21 Ur Leukocyte Esterase Trace (Negative) A 02/16/25 07:21 Urine RBC 0-2 /hpf (0-2) 02/16/25 07:21 Urine WBC 0-5 /hpf (0-5) 02/16/25 07:21 Ur Squamous Epith Cells 0-5 /hpf (0-5) 02/16/25 07:21 Amorphous Sediment Not Reportable 02/16/25 07:21 Urine Bacteria None seen /hpf (NONE) 02/16/25 07:21 Hyaline Casts 0-4 /lpf H 02/16/25 07:21 Digoxin 0.5 ng/mL (0.6-1.2) L 02/13/25 22:47 Urine Opiates Screen Negative ng/mL (Negative) 02/13/25 00:27 Ur Barbiturates Screen Negative ng/mL (Negative) 02/13/25 00:27 Ur Phencyclidine Scrn Negative ng/mL (Negative) 02/13/25 00:27 Ur Amphetamines Screen Negative ng/mL (Negative) 02/13/25 00:27 U Benzodiazepines Scrn Negative ng/mL (Negative) 02/13/25 00:27 Urine Cocaine Screen Negative ng/mL (Negative) 02/13/25 00:27 U Marijuana (THC) Screen Negative ng/mL (Negative) 02/13/25 00:27 Vitals Last Vital Signs Temp 97.1 F L 02/16/25 07:18 Pulse 102 H 02/16/25 11:50 Resp 17 02/16/25 11:50 BP 133/84 02/16/25 11:50 Pulse Ox 96 02/16/25 11:50 O2 Del Method Nasal Cannula 02/16/25 04:00 O2 Flow Rate 2 02/15/25 11:00 Discharge Plan Discharge Patient Disposition: Home Condition: Stable Prescriptions: New amiodarone [Pacerone] 200 mg Tablet 400 mg PO BID 90 Days Qty: 360 0RF Eliquis 5 mg Tablet 5 mg PO BID@0900,2100 90 Days Qty: 180 0RF digoxin 125 mcg (0.125 mg) tablet 125 mcg PO DAILY 90 Days Qty: 90 0RF furosemide 20 mg Tablet 20 mg PO BID@08,16 90 Days Qty: 90 0RF metoprolol succinate 25 mg Tablet Extended Release 24 Hr 50 mg PO DAILY 90 Days Qty: 90 0RF sacubitril-valsartan [Entresto] 24-26 mg Tablet 1 tab PO Q12H 90 Days Qty: 180 0RF hydroxyzine pamoate 25 mg Capsule 50 mg PO DAILY PRN (Reason: Anxiety) 90 Days Qty: 180 0RF digoxin 125 mcg (0.125 mg) tablet 125 mcg PO DAILY 90 Days Qty: 90 0RF spironolactone 25 mg Tablet 25 mg PO DAILY 90 Days Qty: 90 0RF No Action No Known Home Medications Professional Services Manager OK for DC: Cardiology Discharge Order = DC NOW: Discharge Order (Routine); Ordered 02/16/25 Ordered By: Thiago Hyde Other Ambulatory Orders: Comprehensive Metabolic Panel (Routine) Timeframe: 1 Week Facility: [facility] - Location: Lab - Main Lab Ordered By: Thiago Hyde Digoxin (Routine) Timeframe: 1 Week Facility: [facility] - Location: Lab - Main Lab Ordered By: Thiago Hyde Magnesium (Routine) Timeframe: 1 Week Facility: [facility] - Location: Lab - Main Lab Ordered By: Thiago Hyde Phosphorus (Routine) Timeframe: 1 Week Facility: [facility] - Location: Lab - Main Lab Ordered By: Thiago Hyde Referrals: Adrián Gonzáles M.D [Physician, Cardiology] - 1 week Discharge Diet: Cardiac Discharge Activity: Resume usual activity Patient Instructions: A-fib (Atrial Fibrillation) (DC), Opioid Safety, Patient Portal & Rosalio Instructions Activity Restrictions/Additional Instructions: You need to follow closely with the overhead cleaner and your primary care doctor, to regularly measure your heart rate and your blood pressures. Make sure that take medications as prescribed daily. You go to get a blood test in 1 week to measure your serum electrolytes and the digoxin level, which needs to be tightly watched. Discharge Attestations Time Spent in Discharge Care*: greater than 30 min Quality Metrics Clinical Quality Measures [ No reported AMI, CVA or VTE this stay] Coding Level of Care Code 77668 Diagnoses New onset atrial fibrillation I48.91 Atrial fibrillation with rapid ventricular response I48.91 New onset of congestive heart failure I50.9 Tachycardia induced cardiomyopathy I42.8
[2025-02-16 16:04] VITALS: BP 133/84; PULSE 102; RESP 17; TEMP 36.2; O2SAT 96
== END 2025-02-16 16:45 | disposition home or self-care (01) | DRG 308 ==
LOC: ER 07:52 → ER IP 09:18 → ICU 13:32 → CSU 02-15 12:06
PROVIDERS: Internal Medicine; Nurse Practitioner Family; Admitting Provider Family Medicine; Emergency Provider Emergency Medicine; Visit Provider Internal Medicine
DX: I48.91 Unspecified atrial fibrillation (principal); I50.21 Acute systolic (congestive) heart failure; N39.0 Urinary tract infection, site not specified; F41.9 Anxiety disorder, unspecified; I42.8 Other cardiomyopathies; I95.9 Hypotension, unspecified; Z95.1 Presence of aortocoronary bypass graft; Z88.3 Allergy status to other anti-infective agents; Z88.0 Allergy status to penicillin
CPT/HCPCS: 36415; 71045; 80048; 80053; 80061; 80162; 80306; 81001; 83605; 83690; 83735; 83880; 84100; 84145; 84443; 84484; 85025; 85610; 85730; 87040; 93005; 93306; 93312; 93320; 93325; 93458; 96365; 96372; 96375; 99152; 99291; A4222; C1769; C1887; C1894; J0282; J0283; J0696; J1160; J1644; J1650; J1938; J2250; J2704; J3010; J3490; J7030; J7050; J9999; Q9967

== ENCOUNTER → 2025-02-20 10:52 | Outpatient (BNVA) | payer MEDICARE, BC, SELFPAY | PROVIDERS: PCP Family Medicine; Visit Provider Internal Medicine Cardiovascular Disease | DX: I48.20 Chronic atrial fibrillation, unspecified (principal); Z79.01 Long term (current) use of anticoagulants; I42.8 Other cardiomyopathies; R94.31 Abnormal electrocardiogram [ECG] [EKG] | CPT/HCPCS: 93005; 99214 ==